=== PATIENT | male | born 1935 | race Caucasian/White ===

== ENCOUNTER 2018-09-14 11:02 | Inpatient (IN) | payer MEDICARE, SELFPAY ==
[2018-09-14] VITALS (15 sets, daily range): BP systolic 129–158; BP diastolic 56–84; PULSE 71–101; RESP 16–27; TEMP 37.4–39.3; O2SAT 90–97; BMI 27.4; BMI 26.9
--- NOTE | 2018-09-14 11:15 | ED.URI ---
HPI - URI/Sore Throat General Chief Complaint: Upper Respiratory Symptoms Stated Complaint: congestion,weak,constant cough Time Seen by Provider: 09/14/18 11:09 Source: patient Mode of arrival: ambulatory Limitations: no limitations History of Present Illness HPI Narrative: Patient is an 83-year-old male presents with cough and shortness of breath. He is noted to have low-grade fever in the ED. He says that this just started last evening. Every time he laid down he was coughing. He now feels chilled. He does cough up some stuff on. He denies shortness of breath or chest pain. He says they recently got back from a 6 week trip to [place]. He does have history of atrial fibrillation for which he takes Pradaxa for. He denies any rash, runny nose, or red eyes. He did any swelling in his legs. MD Complaint: fever and cough Relieving factors: nothing Able to tolerate fluids by mouth: Yes Context: recent travel (to [place]) Associated symptoms: chills Treatments prior to arrival: none Related Data Home Medications Medication Instructions Recorded Confirmed atorvastatin 10 mg PO DAILY 09/14/18 09/14/18 dabigatran etexilate [Pradaxa] 150 mg PO DAILY 09/14/18 09/14/18 losartan 50 mg PO DAILY 09/14/18 09/14/18 metoprolol tartrate 25 mg PO BID 09/14/18 09/14/18 multivitamin 1 tab PO DAILY 09/14/18 09/14/18 Allergies Allergy/AdvReac Type Severity Reaction Status Date / Time No Known Drug Allergies Allergy Verified 09/14/18 11:35 Review of Systems Review of Systems ROS Unobtainable: All systems reviewed & are unremarkable except as noted in HPI and below Constitutional Reports body ache(s), Reports chills and Reports fever(s) Eyes Denies change in vision, Denies eye discharge, Denies irritation and Denies loss of vision ENT Ears, Nose, Mouth, and Throat: Denies change in voice, Denies neck pain and Denies sore throat Cardiovascular Denies chest pain, Denies irregular heart rhythm, Denies lightheadedness, Denies palpitations and Denies orthopnea Respiratory Reports as per HPI Gastrointestinal Gastrointestinal: Denies abdominal pain, Denies change in bowel habits, Denies diarrhea, Denies nausea and Denies vomiting Genitourinary Denies hematuria, Denies flank pain, Denies urinary incontinence and Denies urinary urgency Musculoskeletal Denies neck pain Integumentary/Breasts Denies pruritus, Denies erythema, Denies rash and Denies wounds Neurologic Denies confusion and Denies loss of vision Psychiatric Denies anxiety, Denies confusion, Denies depression, Denies homicidal ideation and Denies suicidal ideation Endocrine Denies palpitations [facility] Medical History Atrial fibrillation (Acute) Hyperlipidemia (Acute) Hypertension (Acute) Social History marital status: Smoking Status: Never smoker alcohol intake: never substance use type: does not use Social History marital status: Smoking Status: Never smoker alcohol intake: never substance use type: does not use Exam Initial Vital Signs Initial Vital Signs: Vital Signs Temperature 100.3 F H 09/14/18 11:18 Pulse Rate 71 09/14/18 11:18 Respiratory Rate 20 09/14/18 11:18 Blood Pressure 151/80 H 09/14/18 11:18 Pulse Oximetry 97 09/14/18 11:18 GENERAL: Alert pleasant elderly male and in no acute distress. HEENT: Head atraumatic,EOMI, pupils reactive, no JVD CARDIOVASCULAR: Regular rate and rhythm without murmurs, rubs or gallops. RESPIRATORY: Breath sounds equal bilaterally, no wheezes rales or rhonchi. ABDOMEN: Soft, nontender. Normoactive bowel sounds all 4 quadrants. No guarding or rebound. EXTREMITIES: Normal range of motion, no clubbing or edema. Neurovascularly intact NEUROLOGICAL: Alert and oriented x4.Normal gait and speech. Cranial nerves II through XII grossly intact. SKIN: Warm, dry, no laceration, no petechiae, no rashes or lesions. Course Orders Ordered: ED Orders 09/14/18 11:16 Consult to Respiratory Therapy Evaluate & Treat XR chest 1V Stat EKG-12 Lead Stat 09/14/18 11:25 B Type Natriuretic Peptide Stat Complete Blood Count AUTO DIFF Stat Comprehensive Metabolic Panel Stat Lactate (Lactic Acid) Stat Magnesium Stat Partial Thromboplastin Time Stat Procalcitonin Stat Prothrombin Time INR Stat Troponin & CK Cardiac Panel Stat 09/14/18 12:20 Blood Culture Stat 09/14/18 12:31 CT angio chest PE protocol Stat 09/14/18 13:12 US abdomen limited Stat 09/14/18 13:25 Urine Microscopic Stat Discontinued Medications Azithromycin 500 mg/ Dextrose 250 mls @ 250 mls/hr IV NOW ONE Stop: 09/14/18 15:33 Last Infusion: 09/14/18 17:29 Dose: 0 mls/hr Admin: 09/14/18 16:32 Dose: 250 mls/hr Ceftriaxone Sodium/Dextrose (Rocephin) 1 gm in 50 mls @ 100 mls/hr IV NOW ONE Stop: 09/14/18 16:01 Last Infusion: 09/14/18 16:20 Dose: 0 mls/hr Admin: 09/14/18 15:51 Dose: 100 mls/hr Vital Signs - 8 hr 09/14/18 11:18 09/14/18 12:05 09/14/18 13:02 Temperature 100.3 F H Pulse Rate 71 81 91 H Respiratory Rate 20 25 H 21 Blood Pressure 151/80 H Blood Pressure [Left Arm] 137/57 L 133/67 Pulse Oximetry 97 90 L 90 L 09/14/18 14:03 09/14/18 14:41 09/14/18 15:45 Temperature Pulse Rate 79 88 87 Respiratory Rate 25 H 24 27 H Blood Pressure Blood Pressure [Left Arm] 139/56 L 141/56 H 158/75 H Pulse Oximetry 90 L 92 09/14/18 16:00 09/14/18 17:00 Temperature Pulse Rate 87 85 Respiratory Rate 27 H 25 H Blood Pressure Blood Pressure [Left Arm] 147/61 H 131/64 Pulse Oximetry 90 L 92 MDM - URI/Sore Throat Lab Data Attestation: I reviewed the patient's lab results. Result diagrams: 09/14/18 11:25 09/14/18 11:25 Lab Results 09/14/18 09/14/18 09/14/18 Range/Units 11:25 11:25 11:25 WBC 9.0 (4.5-11.0) X10^3/uL RBC 3.68 L (4.5-5.9) X10^6/uL Hgb 12.5 L (13.5-17.5) g/dL Hct 36.3 L (41-53) % MCV 98.8 (80-100) fL MCH 34.0 (26-34) PG MCHC 34.4 (30-36) % RDW 15.7 H (11.6-14.8) % Plt Count 106 L (150-400) X10^3/uL Neut % (Auto) 87.0 H (50-75) % Lymph % (Auto) 6.1 L (25-40) % [place] % (Auto) 6.1 (3-14) % Eos % (Auto) 0.4 L (2-4) % Baso % (Auto) 0.4 (0-2) % Neut # (Auto) 7800 H (1027-3609) /uL Lymph # (Auto) 600 L (8611-2194) /uL [place] # (Auto) 600 (0-900) /uL Eos # (Auto) 0 (0-450) /uL Baso # (Auto) 0 (0-100) /uL PT 21.0 H (10.1-12.7) SECONDS INR 1.8 H (0.9-1.3) APTT 72 H (26.4-36.2) SECONDS Sodium 137 (137-145) mmol/L Potassium 4.0 (3.4-5.1) mmol/L Chloride 104 (98-107) mmol/L Carbon Dioxide 20 L (22-32) mmol/L BUN 14 (9-20) mg/dL Creatinine 1.10 (0.66-1.25) mg/dL Estimated GFR > 60.0 (>60) mL/min BUN/Creatinine Ratio 12.7 (6-22) Glucose 220 H (80-110) mg/dL Lactate (0.7-2.1) mmol/L Calcium 9.5 (8.4-10.2) mg/dL Magnesium 1.9 (1.6-2.3) mg/dL Total Bilirubin 3.6 H (0.2-1.3) mg/dL AST 20 (17-59) IU/L ALT 15 L (21-72) IU/L Alkaline Phosphatase 88 (38-126) U/L Total Creatine Kinase 49 L (55-170) U/L CK-MB (CK-2) TNP CK-MB (CK-2) Rel Index TNP Troponin I < 0.012 (0.01-0.034) ng/mL B-Natriuretic Peptide 503 H (<100) Total Protein 10.1 H* (6.3-8.2) g/dL Albumin 4.2 (3.5-5.0) g/dL Globulin 5.9 H (1.7-4.1) g/dL Albumin/Globulin Ratio 0.7 L (1.0-2.8) Procalcitonin (<0.5) ng/mL Urine RBC (0-5/HPF) Urine WBC (0-5/HPF) Ur Squamous Epith Cells (0-5/HPF) Urine Bacteria (None) Ur Culture Indicated? 09/14/18 09/14/18 09/14/18 Range/Units 11:25 11:25 13:25 WBC (4.5-11.0) X10^3/uL RBC (4.5-5.9) X10^6/uL Hgb (13.5-17.5) g/dL Hct (41-53) % MCV (80-100) fL MCH (26-34) PG MCHC (30-36) % RDW (11.6-14.8) % Plt Count (150-400) X10^3/uL Neut % (Auto) (50-75) % Lymph % (Auto) (25-40) % [place] % (Auto) (3-14) % Eos % (Auto) (2-4) % Baso % (Auto) (0-2) % Neut # (Auto) (6281-0839) /uL Lymph # (Auto) (5451-2433) /uL [place] # (Auto) (0-900) /uL Eos # (Auto) (0-450) /uL Baso # (Auto) (0-100) /uL PT (10.1-12.7) SECONDS INR (0.9-1.3) APTT (26.4-36.2) SECONDS Sodium (137-145) mmol/L Potassium (3.4-5.1) mmol/L Chloride (98-107) mmol/L Carbon Dioxide (22-32) mmol/L BUN (9-20) mg/dL Creatinine (0.66-1.25) mg/dL Estimated GFR (>60) mL/min BUN/Creatinine Ratio (6-22) Glucose (80-110) mg/dL Lactate 1.5 (0.7-2.1) mmol/L Calcium (8.4-10.2) mg/dL Magnesium (1.6-2.3) mg/dL Total Bilirubin (0.2-1.3) mg/dL AST (17-59) IU/L ALT (21-72) IU/L Alkaline Phosphatase (38-126) U/L Total Creatine Kinase (55-170) U/L CK-MB (CK-2) CK-MB (CK-2) Rel Index Troponin I (0.01-0.034) ng/mL B-Natriuretic Peptide (<100) Total Protein (6.3-8.2) g/dL Albumin (3.5-5.0) g/dL Globulin (1.7-4.1) g/dL Albumin/Globulin Ratio (1.0-2.8) Procalcitonin < 0.05 (<0.5) ng/mL Urine RBC 5-10/hpf H (0-5/HPF) Urine WBC 0-1/hpf (0-5/HPF) Ur Squamous Epith Cells 0-1 /hpf (0-5/HPF) Urine Bacteria Occasional (0-1) (None) Ur Culture Indicated? Cult not indicated Urine Dip Bedside Urine Glucose Negative Bedside Urine Bilirubin - Negative Bedside Urine Ketone - Negative Urine Specific [place] 1.020 Bedside Urine Occult Blood ++ Bedside Urine pH 6.0 Bedside Urine Protein ++ 100 Bedside Urine Urobilinogen - Negative Bedside Urine Nitrite - Negative Bedside Urine Leukocytes - Negative Esterase Imaging Data Chest x-ray: Radiologist's impression: PROCEDURE: XR CHEST 1V INDICATIONS: cough, shortness of breath TECHNIQUE: One view of the chest was acquired. COMPARISON: None. FINDINGS: Surgical changes and devices: None evident. Lungs and pleura: There may be developing airspace disease within the bilateral lung bases. No lobar consolidation, large effusion, or pneumothorax is evident. Mediastinum: Mediastinal contours appear normal. Heart size is normal. Bones and chest wall: No suspicious bony lesions. Overlying soft tissues appear unremarkable. IMPRESSION: Subtle developing pneumonia versus chronic lung changes within the lung bases. CT scan - chest: Radiologist's impression: PROCEDURE: CT ANGIO CHEST PE PROTOCOL INDICATIONS: hypoxia, recent travel TECHNIQUE: After the administration of intravenous contrast, 2 mm thick sections acquired from the pulmonary apices to the posterior costophrenic angles. 3-dimensional maximum intensity projection (MIP) coronal and sagittal reformats were then acquired through the thorax. For radiation dose reduction, the following was used: automated exposure control, adjustment of mA and/or kV according to patient size. COMPARISON: None. FINDINGS: Image quality: Excellent. Pulmonary arteries: Pulmonary arteries are normal in size, and demonstrate no intraluminal filling defects to suggest central pulmonary embolism. Lungs and pleura: Lungs are clear. No pleural effusions or pneumothorax. Central and peripheral airways are patent. Mediastinum: Heart size is enlarged, without pericardial effusion. There is calcification of the coronary vasculature. No mediastinal or hilar adenopathy. Thoracic aorta is normal in caliber and enhancement. Esophagus is normal in caliber, without hiatal hernia. Bones and chest wall: No suspicious bony lesions. Thoracic spine ankylosis is present. Ribs and thoracic spine appear intact throughout. Thyroid gland demonstrates an incompletely visualized partially calcified mass within the left lobe measuring at least 60 mm diameter. No axillary or supraclavicular adenopathy. Abdomen: Visualized portions of the upper abdomen demonstrate incompletely visualized choleliths. IMPRESSION: 1. No evidence of pulmonary embolus. 2. No acute process. 3. Cardiomegaly. Coronary artery disease. 4. Cholelithiasis. 5. Thoracic spine ankylosis. Dictated by: Arcadio Dunne M.D. on 09/14/2018 at 12:54 US - abdomen: Radiologist's impression: PROCEDURE: US ABDOMEN LIMITED INDICATIONS: RUQ PAIN TECHNIQUE: Real-time focused scanning was performed of the abdomen, with image documentation. COMPARISON: [facility], CT, CT ANGIO CHEST PE PROTOCOL, 09/14/2018, 12:36. FINDINGS: The gallbladder is normal in size and contains at least a single gallstone measuring up to approximately 2.6 cm. Small echogenic foci within the wall of the gallbladder demonstrating reverberation artifact is evident. The wall of the gallbladder measures up to 6 mm in diameter. The patient exhibited a positive sonographic Murry's. The common bile duct was not definitely seen. There is slight increased echogenicity of the liver. However, the entire liver is not imaged. Imaged portions of the pancreas are unremarkable. IMPRESSION: 1. Cholelithiasis. 2. 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 Please correlate clinically to exclude acute cholecystitis. 3. Probable hepatic steatosis. Dictated by: Alphonso Cheung M.D. on 09/14/2018 at 15:13 ECG Data Attestation: I personally reviewed and interpreted this ECG as follows: Prior ECG tracings: not available for review Interpretation: Atrial fibrillation rate [address] changes MDM Narrative Medical decision making narrative: Patient actually does not appear septic he is resting comfortably. However on the monitor it is noted that O2 dropped 88-89%. While sleeping he denies any history of a vacuum IOP. However when he wakes up and talks only goes up to about 91% and he denies any shortness of breath. He is on Pradaxa by just got back from [place] last week. We will scan for PE. Blood work also shows elevated bilirubin 3.6 no right upper quadrant pain, no elevated liver enzymes. Possible early sepsis. CT for PE actually did show cholelithiasis Waited for ultrasound. Patient had ambulation trial, heart rate increased to 150 O2 sat was difficult to read but did show 97% on the portable pulse oximeter however soon as he got back to the monitor his heart rate of 107 and 89%. Ultrasound cholelithiasis slightly thickened gallbladder wall. The patient has no abdominal pain or right upper quadrant pain, this time I do not think this to be relevant. Bigger concerns patient's pneumonia hypoxia and possible early sepsis. Dr. Castrejon agrees with admission. Discharge Plan Departure Patient Disposition: Admitted As Inpatient Clinical Impression: Pneumonia Qualifiers: Pneumonia type: due to unspecified organism Laterality: unspecified laterality Lung location: unspecified part of lung Qualified Code(s): J18.9 - Pneumonia, unspecified organism Admit Date/Time: 09/14/18 16:31 Admit Provider: Rosalie Castrejon
[2018-09-14 11:38] LABS: Add Manual Diff / Slide Review NO; Basophils Absolute Auto 0 /uL (0-100); Basophils Percent Auto 0.4 % (0-2); Eosinophils Absolute Auto 0 /uL (0-450); Eosinophils Percent Auto 0.4 % (2-4); Hematocrit 36.3 % (41-53); Hemoglobin 12.5 g/dL (13.5-17.5); Lymphocytes Absolute Auto 600 /uL (1100-4500); Lymphocytes Percent Auto 6.1 % (25-40); Mean Corpuscular HGB Conc 34.4 % (30-36); Mean Corpuscular Volume 98.8 fL (80-100); Monocytes Absolute Auto 600 /uL (0-900); Monocytes Percent Auto 6.1 % (3-14); Neutrophils Absolute Auto 7800 /uL (1500-7000); Platelet Count 106 X10^3/uL (150-400); Red Blood Cell Count 3.68 X10^6/uL (4.5-5.9); Red Cell Distribution Width 15.7 % (11.6-14.8)
[2018-09-14 11:45] LABS: INR 1.8 (0.9-1.3)
[2018-09-14 11:48] LABS: Lactate (Lactic Acid) 1.5 mmol/L (0.7-2.1); PTT Partial Thromboplastin Tim 72 SECONDS (26.4-36.2)
[2018-09-14 11:51] LABS: Alanine Aminotransferase 15 IU/L (21-72); Albumin 4.2 g/dL (3.5-5.0); Albumin Globulin Ratio 0.7 (1.0-2.8); Alkaline Phosphatase 88 U/L (38-126); Aspartate Aminotransferase 20 IU/L (17-59); BUN Creatinine Ratio 12.7 (6-22); Bilirubin Total 3.6 mg/dL (0.2-1.3); Blood Urea Nitrogen 14 mg/dL (9-20); Calcium 9.5 mg/dL (8.4-10.2); Carbon Dioxide 20 mmol/L (22-32); Chloride 104 mmol/L (98-107); Creatine Kinase 49 U/L (55-170); Estimated Glomerular Filt Rate > 60.0 mL/min (>60); Globulin 5.9 g/dL (1.7-4.1); Glucose 220 mg/dL (80-110); HEMOLYSIS < 15 (0-50); Magnesium 1.9 mg/dL (1.6-2.3); Sodium 137 mmol/L (137-145)
[2018-09-14 11:55] LABS: B Type Natriuretic Peptide 503 (<100)
[2018-09-14 12:00] LABS: Total Protein 10.1 g/dL (6.3-8.2)
[2018-09-14 12:03] LABS: Troponin I < 0.012 ng/mL (0.01-0.034)
[2018-09-14 12:29] LABS: Procalcitonin < 0.05 ng/mL (<0.5)
--- NOTE | 2018-09-14 12:31 | DI.CT.S_ITS ---
PROCEDURE: CT ANGIO CHEST PE PROTOCOL INDICATIONS: hypoxia, recent travel TECHNIQUE: After the administration of intravenous contrast, 2 mm thick sections acquired from the pulmonary apices to the posterior costophrenic angles. 3-dimensional maximum intensity projection (MIP) coronal and sagittal reformats were then acquired through the thorax. For radiation dose reduction, the following was used: automated exposure control, adjustment of mA and/or kV according to patient size. COMPARISON: None. FINDINGS: Image quality: Excellent. Pulmonary arteries: Pulmonary arteries are normal in size, and demonstrate no intraluminal filling defects to suggest central pulmonary embolism. Lungs and pleura: Lungs are clear. No pleural effusions or pneumothorax. Central and peripheral airways are patent. Mediastinum: Heart size is enlarged, without pericardial effusion. There is calcification of the coronary vasculature. No mediastinal or hilar adenopathy. Thoracic aorta is normal in caliber and enhancement. Esophagus is normal in caliber, without hiatal hernia. Bones and chest wall: No suspicious bony lesions. Thoracic spine ankylosis is present. Ribs and thoracic spine appear intact throughout. Thyroid gland demonstrates an incompletely visualized partially calcified mass within the left lobe measuring at least 60 mm diameter. No axillary or supraclavicular adenopathy. Abdomen: Visualized portions of the upper abdomen demonstrate incompletely visualized choleliths. IMPRESSION: 1. No evidence of pulmonary embolus. 2. No acute process. 3. Cardiomegaly. Coronary artery disease. 4. Cholelithiasis. 5. Thoracic spine ankylosis. Dictated by: Arcadio Dunne M.D. on 09/14/2018 at 12:54 Approved by: Arcadio Dunne M.D. on 09/14/2018 at 13:03
--- NOTE | 2018-09-14 13:12 | DI.US.S_ITS ---
PROCEDURE: US ABDOMEN LIMITED INDICATIONS: RUQ PAIN TECHNIQUE: Real-time focused scanning was performed of the abdomen, with image documentation. COMPARISON: [facility], CT, CT ANGIO CHEST PE PROTOCOL, 09/14/2018, 12:36. FINDINGS: The gallbladder is normal in size and contains at least a single gallstone measuring up to approximately 2.6 cm. Small echogenic foci within the wall of the gallbladder demonstrating reverberation artifact is evident. The wall of the gallbladder measures up to 6 mm in diameter. The patient exhibited a positive sonographic Murry's. The common bile duct was not definitely seen. There is slight increased echogenicity of the liver. However, the entire liver is not imaged. Imaged portions of the pancreas are unremarkable. IMPRESSION: 1. Cholelithiasis. 2. 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 Please correlate clinically to exclude acute cholecystitis. 3. Probable hepatic steatosis. Dictated by: Alphonso Cheung M.D. on 09/14/2018 at 15:13 Approved by: Alphonso Cheung M.D. on 09/14/2018 at 15:15
--- NOTE | 2018-09-14 13:35 | PC.NURSE ---
Placed on O2 for sats of 88%
[2018-09-14 14:01] LABS: RBC Urine 5-10/HPF (0-5/HPF); Squamous Epithelial Cell Urine 0-1 /HPF (0-5/HPF); WBC Urine 0-1/HPF (0-5/HPF)
[2018-09-14 14:02] LABS: Bacteria Urine Occasional (0-1); Culture Indicated Urine Cult Not Indicated
[2018-09-14] MEDS: CEFTRIAXONE 1 GM/50 ML FROZ.PIGGY IV (15:51)
[2018-09-14] MEDS: AZITHROMYCIN 500 MG in DEXTROSE 5% IN WATER 250 ML IV (16:32)
--- NOTE | 2018-09-14 18:29 | PM.HP.1 ---
History of Present Illness Date Patient Seen: 09/14/18 Chief complaint: congestion,weak,constant cough Narrative: The patient is an 83-year-old male with a history of atrial fibrillation on Pradaxa, hypertension, hyperlipidemia who was in his usual state of health until a few days ago. Patient was on a 6 week trip to [place] where he was in [place] and [place]. He reports last night he developed a cough which is nonproductive. He has had fever, shortness of breath, and wheezing. He reports no hemoptysis. He does not have a productive cough. He denies any chest pain. He has chronic atrial fibrillation. The patient was weak cough and short of breath. He was seen in the emergency department. Initially his fever was noted to be 103. He had a chest x-ray which suggested a pneumonia. They were planning to discharge him home however the patient was noted to be hypoxic on room air. His saturation dipped to 84-88%. A CT angio of the chest was obtained to rule out PE. There was no evidence of PE on the CT. In addition the patient was found to have an elevated bilirubin. He had an abdominal ultrasound which was unremarkable. The patient was admitted to the hospital for inpatient treatment of pneumonia. He reports no headache blurred vision or double vision. He has no nausea vomiting or diarrhea. He denies any swelling in his ankles. He has no joint pains. No dysuria hematuria or pyuria. Further review of systems is negative. Patient History Medical History (Updated 09/14/18 @ 18:37 by Rosalie Castrejon MD) Atrial fibrillation (Acute) Hyperlipidemia (Acute) Hypertension (Acute) Surgical History (Updated 09/14/18 @ 18:33 by Rosalie Castrejon MD) Hip joint replacement status (Acute) Family History (Updated 09/14/18 @ 18:33 by Rosalie Castrejon MD) Brother Atrial fibrillation Social History marital status: Smoking Status: Never smoker alcohol intake: never substance use type: does not use Family & Social History Family History (Updated 09/14/18 @ 18:33 by Rosalie Castrejon MD) Brother Atrial fibrillation Safety & Behavioral: Feels Safe in Current Yes Environment Been Physically Hurt or No Threatened By a Person Tobacco & Substance use: Smoking Status Never smoker alcohol intake never alcohol intake frequency a few times a month Substance Use Type does not use Meds Home Medications Medication Instructions Recorded Confirmed Type atorvastatin 10 mg PO DAILY 09/14/18 09/14/18 History dabigatran etexilate [Pradaxa] 150 mg PO DAILY 09/14/18 09/14/18 History losartan 50 mg PO DAILY 09/14/18 09/14/18 History metoprolol tartrate 25 mg PO BID 09/14/18 09/14/18 History multivitamin 1 tab PO DAILY 09/14/18 09/14/18 History Allergies Allergy/AdvReac Type Severity Reaction Status Date / Time No Known Drug Allergies Allergy Verified 09/14/18 11:35 Review of Systems Review of Systems All systems reviewed & are unremarkable except as noted in HPI and below Exam Vital Signs (past 8 hours): - 09/14/18 11:18 09/14/18 12:05 09/14/18 13:02 Temperature 100.3 F H Pulse Rate 71 81 91 H Respiratory Rate 20 25 H 21 Blood Pressure 151/80 H Blood Pressure [Left Arm] 137/57 L 133/67 Pulse Oximetry 97 90 L 90 L 09/14/18 14:03 09/14/18 14:41 09/14/18 15:45 Temperature Pulse Rate 79 88 87 Respiratory Rate 25 H 24 27 H Blood Pressure Blood Pressure [Left Arm] 139/56 L 141/56 H 158/75 H Pulse Oximetry 90 L 92 09/14/18 16:00 09/14/18 17:00 09/14/18 17:44 Temperature Pulse Rate 87 85 82 Respiratory Rate 27 H 25 H 21 Blood Pressure 129/57 L Blood Pressure [Left Arm] 147/61 H 131/64 Pulse Oximetry 90 L 92 94 Oxygen Delivery Method Nasal Cannula Oxygen Flow Rate 2 Narrative Exam Narrative: Pleasant elderly male who is ill-appearing HEENT: Normocephalic atraumatic, extraocular muscles are intact oropharynx is clear neck is supple, Lungs: Decreased breath sounds, bibasilar rhonchi noted, end-expiratory wheezing as well Cardiac exam: Irregularly irregular, normal S1-S2 Abdomen: Soft nontender nondistended, no hepatosplenomegaly Extremities: No edema Neuro exam: Nonfocal Psychiatric exam: Patient is awake alert appropriate answers questions accordingly Objective Labs Result Diagrams: 09/14/18 11:25 09/14/18 11:25 Labs: Laboratory Results - last 24 hr 09/14/18 09/14/18 09/14/18 11:25 11:25 11:25 WBC 9.0 RBC 3.68 L Hgb 12.5 L Hct 36.3 L MCV 98.8 MCH 34.0 MCHC 34.4 RDW 15.7 H Plt Count 106 L Neut % (Auto) 87.0 H Lymph % (Auto) 6.1 L [place] % (Auto) 6.1 Eos % (Auto) 0.4 L Baso % (Auto) 0.4 Neut # (Auto) 7800 H Lymph # (Auto) 600 L [place] # (Auto) 600 Eos # (Auto) 0 Baso # (Auto) 0 PT 21.0 H INR 1.8 H APTT 72 H Sodium 137 Potassium 4.0 Chloride 104 Carbon Dioxide 20 L BUN 14 Creatinine 1.10 Estimated GFR > 60.0 BUN/Creatinine Ratio 12.7 Glucose 220 H Lactate Calcium 9.5 Magnesium 1.9 Total Bilirubin 3.6 H AST 20 ALT 15 L Alkaline Phosphatase 88 Total Creatine Kinase 49 L CK-MB (CK-2) TNP CK-MB (CK-2) Rel Index TNP Troponin I < 0.012 B-Natriuretic Peptide 503 H Total Protein 10.1 H* Albumin 4.2 Globulin 5.9 H Albumin/Globulin Ratio 0.7 L Procalcitonin Urine RBC Urine WBC Ur Squamous Epith Cells Urine Bacteria Ur Culture Indicated? 09/14/18 09/14/18 09/14/18 11:25 11:25 13:25 WBC RBC Hgb Hct MCV MCH MCHC RDW Plt Count Neut % (Auto) Lymph % (Auto) [place] % (Auto) Eos % (Auto) Baso % (Auto) Neut # (Auto) Lymph # (Auto) [place] # (Auto) Eos # (Auto) Baso # (Auto) PT INR APTT Sodium Potassium Chloride Carbon Dioxide BUN Creatinine Estimated GFR BUN/Creatinine Ratio Glucose Lactate 1.5 Calcium Magnesium Total Bilirubin AST ALT Alkaline Phosphatase Total Creatine Kinase CK-MB (CK-2) CK-MB (CK-2) Rel Index Troponin I B-Natriuretic Peptide Total Protein Albumin Globulin Albumin/Globulin Ratio Procalcitonin < 0.05 Urine RBC 5-10/hpf H Urine WBC 0-1/hpf Ur Squamous Epith Cells 0-1 /hpf Urine Bacteria Occasional (0-1) Ur Culture Indicated? Cult not indicated Assessment & Plan (1) Pneumonia: Problem details: Patient admitted to the hospital with presumed pneumonia, present on admission. He has had a pneumonia shot. His procalcitonin is less than 5. Will check respiratory virus panel and influenza panel. Will continue him on ceftriaxone and azithromycin in the interim. Qualifiers: Aspiration pneumonia type: Laterality: unspecified laterality Lung location: unspecified part of lung Pneumonia type: due to unspecified organism Qualified Code(s): J18.9 - Pneumonia, unspecified organism Current visit: Yes Status: Acute (2) Acute respiratory failure with hypoxia: Problem details: Will continue oxygen, will add albuterol nebulized given his wheezing. Present on admission Current visit: Yes Status: Acute (3) Hypertension: Problem details: Chronic, continue home medication Current visit: Yes Status: Acute (4) Atrial fibrillation: Problem details: Chronic, continue home medications in addition to his usual Pradaxa Current visit: Yes Status: Acute (5) Hyperlipidemia: Problem details: Continue statin, chronic Current visit: Yes Status: Acute Assessment & Plan narrative: Patient noted to have an elevated bilirubin. Will continue to monitor this closely.
[2018-09-14] MEDS: SODIUM CHLORIDE 0.45% 1,000 ML 100 ML IV (18:33)
[2018-09-14] MEDS: DABIGATRAN 75 MG CAPSULE 150 MG PO (18:34)
[2018-09-14] MEDS: ACETAMINOPHEN 325 MG TABLET 650 MG PO (18:52)
[2018-09-14] MEDS: SODIUM CHLORIDE 0.9% 1,000 ML 84 ML IV (19:33)
--- NOTE | 2018-09-14 19:39 | PC.NURSE ---
admit note: pt arrived at 1815, ambulated to the bed from stretcher, but weak. 90-91% RA while awake, desats to mid 80's while sleeping per ED nurse. pt now 2L 92% at sleep. denied chest pain or n/v. febrile 102.7, administered tylenol. cms+. oriented pt to the room. call light in reach. bed alarm active.
[2018-09-14] MEDS: ATORVASTATIN 10 MG TABLET PO (21:03)
[2018-09-14] MEDS: DOCUSATE 100 MG CAPSULE PO (21:06)
[2018-09-14] MEDS: METOPROLOL IR 25 MG TABLET PO (21:06)
[2018-09-14 21:14] LABS: Adenovirus Not Detected (Not Detect); Bordetella pertussis Not Detected (Not Detect); Chlamydophila pneumoniae Not Detected (Not Detect); Coronavirus 229E Not Detected (Not Detect); Coronavirus HKU1 Not Detected (Not Detect); Coronavirus NL 63 Not Detected (Not Detect); Coronavirus OC43 Not Detected (Not Detect); Human Metapneumovirus Not Detected (Not Detect); Human Rhinovirus/Enterovirus Detected (Not Detect); Influenza A Not Detected (Not Detect); Influenza B Not Detected (Not Detect); Mycoplasma pneumoniae Not Detected (Not Detect); Parainfluenza Virus 1 Not Detected (Not Detect); Parainfluenza Virus 2 Not Detected (Not Detect); Parainfluenza Virus 3 Not Detected (Not Detect); Parainfluenza Virus 4 Not Detected (Not Detect); Respiratory Syncytial Virus Not Detected (Not Detect)
[2018-09-15] VITALS (26 sets, daily range): BP systolic 120–139; BP diastolic 61–75; PULSE 73–110; RESP 16–24; TEMP 36.7–39.3; O2SAT 91–97
--- NOTE | 2018-09-15 | DI.MRI.S_ITS ---
PROCEDURE: MR ABDOMEN WO CON INDICATIONS: Hyperbilirubinemia TECHNIQUE: Coronal HASTE through the abdomen, axial 2-D FLASH in- and [id number], and breath-hold T2 FSE with fat saturation through the biliary system and pancreas. Oblique coronal and axial thin-slice HASTE, radial thick-slab HASTE centered on the extrahepatic bile ducts. Intravenous secretin: Not requested. COMPARISON: None. FINDINGS: Image quality: Excellent. Pancreas and biliary system: Intra- and extra-hepatic biliary ducts are non dilated. Pancreas is normal in morphology, without adjacent soft tissue edema. Pancreatic duct is normal in caliber, without developmental anomalies. Inflammatory changes and fluid noted adjacent to the tail of pancreas suspicious for pancreatitis. Gallbladder contains a 2.1 cm in diameter stone. Gallbladder wall thickening. Trace pericholecystic fluid is noted. Other solid organs: Liver is normal in size. Spleen is normal in size. No adrenal nodules. Both kidneys are normal in size, without hydronephrosis. Nodes and vessels: No retroperitoneal or mesenteric adenopathy by size criteria. Aorta and inferior vena cava are normal in size. Bowel and peritoneum: Unenhanced bowel loops are normal in caliber. No free fluid. Lung bases: No basal pleural effusions. Heart size is normal. Bones and soft tissues: No ventral hernias. Bone marrow is of normal overall signal. IMPRESSION: 1. Cholelithiasis with gallbladder wall thickening and pericholecystic fluid consistent with cholecystitis. 2. Mild inflammatory changes and small amount of free fluid adjacent to the tail of the pancreas suspicious for pancreatitis. Please correlate with laboratory data. 3. No biliary or pancreatic ductal dilatation. No choledocholithiasis. Dictated by: Consuelo Austin MD, PhD on 09/15/2018 at 18:44 Approved by: Consuelo Austin MD, PhD on 09/15/2018 at 18:47
--- NOTE | 2018-09-15 | DI.ECHO.S_ITS ---
[facility]---------+ [facility] +---------+ : : [address] : : : : [address] : : : : Phone: [phone] Echocardiogram Report + + :Name: MEEK COREY Study Date: 09/16/2018 Height: 68 in : :[facility] Exam Location: [facility] Weight: 177 lb : : Gender: Male BSA: 1.9 m2 : :: 1935 Age: 83 yrs BP: 142/71 mmHg: :Reason For Study: Pulmonary Edema : :Ordering Physician: Gladys : :Hospitalist Performed By: Solange Chawla : :Referring: Sharon MORALES E : + + Interpretation Summary The left ventricle is borderline dilated. Left ventricular systolic function is low normal. The ejection fraction is estimated to be 50-55%. Left ventricular wall motion is normal. Diastolic function cannot be fully assessed due to a-fib, findings suggest increased LV filling pressures or grade II diastolic dysfunction. Clinical correlation is recommended to diagnosis diastolic CHF. The right ventricle is borderline dilated. The right ventricular systolic function is normal. The right ventricular systolic pressure is estimated to be at least 53 mmHg based on an estimated right atrial pressure of 15 mm Hg. The left atrium is moderately dilated. The right atrium is severely dilated. There is mild mitral regurgitation. There is no other significant valvular heart disease. Procedure: A two-dimensional transthoracic echocardiogram with color flow and Doppler was performed. The study quality was technically adequate. There is no prior echocardiogram noted for this patient. The patient was in atrial fibrillation with heart rates between 76-94 bpm during the exam. Left Ventricle: The left ventricle is borderline dilated. There is normal left ventricular wall thickness. Left ventricular systolic function is low normal. The ejection fraction is estimated to be 50-55%. Left ventricular wall motion is normal. Right Ventricle: The right ventricle is borderline dilated. The right ventricular systolic function is normal. Atria: The left atrium is moderately dilated. The right atrium is severely dilated. The interatrial septum is intact with no evidence for an atrial septal defect. Mitral Valve: The mitral valve is normal in structure and function. There is mild mitral regurgitation. Aortic Valve: The aortic valve is trileaflet. The aortic valve opens well. There is trace aortic regurgitation. Tricuspid Valve: The tricuspid valve is normal in structure and function. There is mild tricuspid regurgitation. The right ventricular systolic pressure is estimated to be at least 53 mmHg based on an estimated right atrial pressure of 15 mm Hg. Pulmonic Valve: The pulmonic valve is not well visualized. There is a trace or physiologic amount of pulmonic regurgitation. There is no other significant valvular heart disease. Great Vessels: The aortic root is not well visualized but is probably normal size. The ascending aorta is moderately enlarged. The IVC is dilated (diameter is greater than 2.1 cm) and it collapses less than 50% with a sniff. This suggests a high right atrial pressure of 15 mm Hg. Pericardium/ Pleura There is no pericardial effusion. There is no pleural effusion. MMode/2D Measurements & Calculations LVIDd: 5.9 cm LVOT diam: 2.4 cm LVIDs: 3.6 cm Ao root diam: 3.6 cm FS: 39.6 % asc Aorta Diam: 4.3 cm IVSd: 0.94 cm LVPWd: 1.0 cm LV jimenez. diameter/BSA (cm/m^2): 3.1 LV sys. diameter/BSA (cm/m^2): 1.8 LA A2 area: 28.0 cm2 RA long axis: 6.0 cm LA A4 area: 23.6 cm2 RA area: 27.8 cm2 LA length (vol): 6.6 cm RA vol: 109.4 ml LA vol: 85.6 ml RA : 56.4 ml/m2 LA vol index: 44.1 ml/m2 IVC diam: 2.8 cm TAPSE: 1.9 cm Doppler Measurements & Calculations Ao V2 max: 123.5 cm/sec LVOT Max Jeff: 95.8 cm/sec Ao V2 mean: 90.0 cm/sec LV V1 max P.7 mmHg Ao max P.1 mmHg LV V1 VTI: 15.5 cm Ao mean P.5 mmHg EFRAIN(I,D): 3.6 cm2 Ao V2 VTI: 19.0 cm EFRAIN(V,D): 3.4 cm2 sev ratio: 0.82 EFRAIN indexed to BSA (cm^2/m^2): 1.9 TR max jeff: 307.2 cm/sec SV(LVOT): 68.5 ml TR max P.7 mmHg Reading Physician:03:17 PM
[2018-09-15] MEDS: ALBUTEROL 2.5 MG/3 ML NEB (ADULT) INH ×4 (00:38→19:24)
[2018-09-15] MEDS: ACETAMINOPHEN 325 MG TABLET 650 MG PO ×3 (01:06→18:31)
--- NOTE | 2018-09-15 01:42 | PC.NURSE ---
Pt desatting to low 80's on 4L NC, bumped up to 5L and simple mask and able to stay at 92%. Also requested breathing treatment which was helpful. Pt coughs everytime he breathes in through his nose or tries to take a deep breath. He is congested and has a difficult time coughing. He has been quiet and sleeping an hour p the breathing tx. Pt also had a temp of 102.1 at the beginning of the shift; given 650 APAP and ice packs under arms and is now at 100.7. Tachy at times and SOB with exertion.
[2018-09-15 05:46] LABS: Add Manual Diff / Slide Review NO; Basophils Absolute Auto 0 /uL (0-100); Basophils Percent Auto 0.2 % (0-2); Eosinophils Absolute Auto 0 /uL (0-450); Eosinophils Percent Auto 0.2 % (2-4); Hemoglobin 11.3 g/dL (13.5-17.5); Lymphocytes Absolute Auto 500 /uL (1100-4500); Lymphocytes Percent Auto 6.7 % (25-40); Mean Corpuscular HGB Conc 35.2 % (30-36); Mean Corpuscular Hemoglobin 34.6 PG (26-34); Mean Corpuscular Volume 98.2 fL (80-100); Monocytes Absolute Auto 500 /uL (0-900); Monocytes Percent Auto 6.2 % (3-14); Neutrophils Absolute Auto 6400 /uL (1500-7000); Neutrophils Percent Auto 86.7 % (50-75); Platelet Count 85 X10^3/uL (150-400); Red Blood Cell Count 3.26 X10^6/uL (4.5-5.9); Red Cell Distribution Width 15.8 % (11.6-14.8); White Blood Cell Count 7.4 X10^3/uL (4.5-11.0)
[2018-09-15 05:54] LABS: BUN Creatinine Ratio 13.3 (6-22); Blood Urea Nitrogen 16 mg/dL (9-20); Calcium 9.4 mg/dL (8.4-10.2); Carbon Dioxide 20 mmol/L (22-32); Chloride 105 mmol/L (98-107); Glucose 168 mg/dL (80-110); HEMOLYSIS < 15 (0-50); Potassium 3.7 mmol/L (3.4-5.1); Sodium 134 mmol/L (137-145)
--- NOTE | 2018-09-15 07:00 | DI.RAD.S_ITS ---
PROCEDURE: XR CHEST 2V INDICATIONS: r/o pneumonia TECHNIQUE: 2 views of the chest were acquired. COMPARISON: [facility], CR, XR CHEST 1V, 09/14/2018, 11:20. FINDINGS: Surgical changes and devices: None. Lungs and pleura: There is blunting of bilateral costophrenic angles posteriorly suggestive of trace bilateral pleural effusion and bibasilar atelectasis. No definite focal infiltrate. Pulmonary vascular congestion is seen. No gross pneumothorax. Mediastinum: Mediastinal contours are normal. Heart size is enlarged. Bones and chest wall: No suspicious bony abnormalities. Soft tissues appear unremarkable. IMPRESSION: Congestive changes and small bilateral posterior pleural effusion with bibasilar dependent atelectasis. No definite focal infiltrate or gross pneumothorax. Dictated by: Nicho Ghosh M.D. on 09/15/2018 at 11:47 Approved by: Nicho Ghosh M.D. on 09/15/2018 at 11:51
[2018-09-15] MEDS: SODIUM CHLORIDE 0.9% 1,000 ML 84 ML IV ×2 (07:54→21:43)
[2018-09-15] MEDS: DOCUSATE 100 MG CAPSULE PO ×2 (09:30→20:44)
[2018-09-15] MEDS: LOSARTAN 50 MG TABLET PO (09:30)
[2018-09-15] MEDS: METOPROLOL IR 25 MG TABLET PO ×2 (09:30→20:44)
--- NOTE | 2018-09-15 10:12 | PM.PN.1 ---
Subjective Date Patient Seen: 09/15/18 Time Patient Seen: 10:12 Interval history: He is seen today in his room to follow-up the hypoxia and apparent viral pneumonia. The white count is 7.4. The bilirubin has dropped from 3.6, down to 3.0. The BNP was 503. He was 94% on 5 L. The respiratory viral panel is positive for enterovirus/rhinovirus. His troponin was normal but the chest x-rays and CTA chest when I review them look more like congestive heart failure or pulmonary fibrosis and so an echocardiogram will be needed. Exam Vital Signs (past 8 hours): - 09/15/18 02:36 09/15/18 03:32 09/15/18 03:54 Temperature 101.4 F H 100.4 F H 100.4 F H Pulse Rate Respiratory Rate Blood Pressure Pulse Oximetry 09/15/18 05:13 09/15/18 07:00 09/15/18 08:00 Temperature 100.1 F H 98.0 F Pulse Rate 77 73 Respiratory Rate 16 18 Blood Pressure 120/65 139/61 Pulse Oximetry 97 96 96 09/15/18 08:47 Temperature Pulse Rate 76 Respiratory Rate 18 Blood Pressure Pulse Oximetry 94 Oxygen Delivery Method Nasal Cannula Oxygen Flow Rate 5 Narrative Exam Narrative: He is alert and oriented x3. He looks quite weak and ill. Heart is irregularly irregular without murmur. Lungs have wheezing bilaterally. Extremities have no ankle edema. Objective Labs Result Diagrams: 09/15/18 05:00 09/15/18 05:00 Labs: Laboratory Results - last 24 hr 09/14/18 09/14/18 09/14/18 11:25 11:25 11:25 WBC 9.0 RBC 3.68 L Hgb 12.5 L Hct 36.3 L MCV 98.8 MCH 34.0 MCHC 34.4 RDW 15.7 H Plt Count 106 L Neut % (Auto) 87.0 H Lymph % (Auto) 6.1 L [place] % (Auto) 6.1 Eos % (Auto) 0.4 L Baso % (Auto) 0.4 Neut # (Auto) 7800 H Lymph # (Auto) 600 L [place] # (Auto) 600 Eos # (Auto) 0 Baso # (Auto) 0 PT 21.0 H INR 1.8 H APTT 72 H Sodium 137 Potassium 4.0 Chloride 104 Carbon Dioxide 20 L BUN 14 Creatinine 1.10 Estimated GFR > 60.0 BUN/Creatinine Ratio 12.7 Glucose 220 H Lactate Calcium 9.5 Magnesium 1.9 Total Bilirubin 3.6 H AST 20 ALT 15 L Alkaline Phosphatase 88 Total Creatine Kinase 49 L CK-MB (CK-2) TNP CK-MB (CK-2) Rel Index TNP Troponin I < 0.012 B-Natriuretic Peptide 503 H Total Protein 10.1 H* Albumin 4.2 Globulin 5.9 H Albumin/Globulin Ratio 0.7 L Procalcitonin Urine RBC Urine WBC Ur Squamous Epith Cells Urine Bacteria Ur Culture Indicated? Chlamy pneumoniae PCR Adenovirus (PCR) B.parapertussis DNA PCR Coronavirus OC43 (PCR) Coronavirus HKU1 (PCR) Coronavirus 229E (PCR) Coronavirus NL63 (PCR) Human Metapneumovir PCR Influenza Type A (PCR) Influenza Type B (PCR) M. pneumoniae (PCR) Parainfluenza 1 (PCR) Parainfluenza 2 (PCR) Parainfluenza 3 (PCR) Parainfluenza 4 (PCR) RSV (PCR) Entero/Rhino (PCR) 09/14/18 09/14/18 09/14/18 11:25 11:25 13:25 WBC RBC Hgb Hct MCV MCH MCHC RDW Plt Count Neut % (Auto) Lymph % (Auto) [place] % (Auto) Eos % (Auto) Baso % (Auto) Neut # (Auto) Lymph # (Auto) [place] # (Auto) Eos # (Auto) Baso # (Auto) PT INR APTT Sodium Potassium Chloride Carbon Dioxide BUN Creatinine Estimated GFR BUN/Creatinine Ratio Glucose Lactate 1.5 Calcium Magnesium Total Bilirubin AST ALT Alkaline Phosphatase Total Creatine Kinase CK-MB (CK-2) CK-MB (CK-2) Rel Index Troponin I B-Natriuretic Peptide Total Protein Albumin Globulin Albumin/Globulin Ratio Procalcitonin < 0.05 Urine RBC 5-10/hpf H Urine WBC 0-1/hpf Ur Squamous Epith Cells 0-1 /hpf Urine Bacteria Occasional (0-1) Ur Culture Indicated? Cult not indicated Chlamy pneumoniae PCR Adenovirus (PCR) B.parapertussis DNA PCR Coronavirus OC43 (PCR) Coronavirus HKU1 (PCR) Coronavirus 229E (PCR) Coronavirus NL63 (PCR) Human Metapneumovir PCR Influenza Type A (PCR) Influenza Type B (PCR) M. pneumoniae (PCR) Parainfluenza 1 (PCR) Parainfluenza 2 (PCR) Parainfluenza 3 (PCR) Parainfluenza 4 (PCR) RSV (PCR) Entero/Rhino (PCR) 09/14/18 09/15/18 09/15/18 19:36 05:00 05:00 WBC 7.4 RBC 3.26 L Hgb 11.3 L Hct 32.0 L MCV 98.2 MCH 34.6 H MCHC 35.2 RDW 15.8 H Plt Count 85 L Neut % (Auto) 86.7 H Lymph % (Auto) 6.7 L [place] % (Auto) 6.2 Eos % (Auto) 0.2 L Baso % (Auto) 0.2 Neut # (Auto) 6400 Lymph # (Auto) 500 L [place] # (Auto) 500 Eos # (Auto) 0 Baso # (Auto) 0 PT INR APTT Sodium 134 L Potassium 3.7 Chloride 105 Carbon Dioxide 20 L BUN 16 Creatinine 1.20 Estimated GFR 58.0 L BUN/Creatinine Ratio 13.3 Glucose 168 H Lactate Calcium 9.4 Magnesium Total Bilirubin AST ALT Alkaline Phosphatase Total Creatine Kinase CK-MB (CK-2) CK-MB (CK-2) Rel Index Troponin I B-Natriuretic Peptide Total Protein Albumin Globulin Albumin/Globulin Ratio Procalcitonin Urine RBC Urine WBC Ur Squamous Epith Cells Urine Bacteria Ur Culture Indicated? Chlamy pneumoniae PCR Not detected Adenovirus (PCR) Not detected B.parapertussis DNA PCR Not detected Coronavirus OC43 (PCR) Not detected Coronavirus HKU1 (PCR) Not detected Coronavirus 229E (PCR) Not detected Coronavirus NL63 (PCR) Not detected Human Metapneumovir PCR Not detected Influenza Type A (PCR) Not detected Influenza Type B (PCR) Not detected M. pneumoniae (PCR) Not detected Parainfluenza 1 (PCR) Not detected Parainfluenza 2 (PCR) Not detected Parainfluenza 3 (PCR) Not detected Parainfluenza 4 (PCR) Not detected RSV (PCR) Not detected Entero/Rhino (PCR) Detected H 09/15/18 05:00 WBC RBC Hgb Hct MCV MCH MCHC RDW Plt Count Neut % (Auto) Lymph % (Auto) [place] % (Auto) Eos % (Auto) Baso % (Auto) Neut # (Auto) Lymph # (Auto) [place] # (Auto) Eos # (Auto) Baso # (Auto) PT INR APTT Sodium Potassium Chloride Carbon Dioxide BUN Creatinine Estimated GFR BUN/Creatinine Ratio Glucose Lactate Calcium Magnesium Total Bilirubin 3.0 H AST ALT Alkaline Phosphatase Total Creatine Kinase CK-MB (CK-2) CK-MB (CK-2) Rel Index Troponin I B-Natriuretic Peptide Total Protein Albumin Globulin Albumin/Globulin Ratio Procalcitonin Urine RBC Urine WBC Ur Squamous Epith Cells Urine Bacteria Ur Culture Indicated? Chlamy pneumoniae PCR Adenovirus (PCR) B.parapertussis DNA PCR Coronavirus OC43 (PCR) Coronavirus HKU1 (PCR) Coronavirus 229E (PCR) Coronavirus NL63 (PCR) Human Metapneumovir PCR Influenza Type A (PCR) Influenza Type B (PCR) M. pneumoniae (PCR) Parainfluenza 1 (PCR) Parainfluenza 2 (PCR) Parainfluenza 3 (PCR) Parainfluenza 4 (PCR) RSV (PCR) Entero/Rhino (PCR) Assessment & Plan (1) Pneumonia: Problem details: Patient was admitted to the hospital with presumed pneumonia, present on admission. He has had a pneumonia shot. His respiratory viral panel is positive for Rhinovirus. Stopping bacterial antibiotic coverage today. Recheck CBC tomorrow. Qualifiers: Aspiration pneumonia type: Laterality: unspecified laterality Lung location: unspecified part of lung Pneumonia type: due to unspecified organism Qualified Code(s): J18.9 - Pneumonia, unspecified organism Current visit: Yes Status: Acute (2) Acute respiratory failure with hypoxia: Problem details: Will continue oxygen, will add albuterol nebulized given his wheezing. Present on admission Consider adding steroids. The elevated BNP and the chest x-ray/CT angiogram of the chest appearance suggests a cardiac component and so an echocardiogram will be ordered. Current visit: Yes Status: Acute (3) Hypertension: Problem details: Chronic, continue home medication Current visit: Yes Status: Acute (4) Atrial fibrillation: Problem details: Chronic, continue home medications including metoprolol and Pradaxa Current visit: Yes Status: Acute (5) Hyperlipidemia: Problem details: Continue statin, chronic Current visit: Yes Status: Acute (6) Hyperbilirubinemia: Problem details: Etiology uncertain. Bilirubin has dropped to 3.0 and will be rechecked tomorrow. US liver imaging shows cholelithiasis, gallbladder wall thickening and probable adenomyomatosis. Consider surgical consult. No abdominal pain complaint. Recheck CBC tomorrow. Current visit: Yes Status: Acute
--- NOTE | 2018-09-15 13:35 | PC.NURSE ---
Pt is A&Ox3. Lung sounds with wheezes and crackles throughout. Pt has a nonproductive cough. Heart rate up to 130s previously, aware but has not written any new orders. Up to chair and pt just laid back down. He is a one person assist and had a bm and unmeasured void. He can also be incontinent of urine sometimes. Eating well at meals.
--- NOTE | 2018-09-15 14:29 | CM.DANOTE ---
Addendum entered by Sally Pelaez LPN 09/15/18 14:37: Pt identifies Jovanny Storm as his Life Partner. Original Note: Discharge Planning/Care Management DCP: assessment: case received and discussed this morning in Team Rounds. Pt is an 83 year old male who admitted yesterday late afternoon to care of hospitalilst team. PCP: Dr. Lise Leal Payer: Medicare and [employer]. Pt with recent travel for 6 weeks in [place] and [place] and with signs of illness upon his return. Full dx and POC are in process. DROPLET PRECAUTIONS: noted. Rsp viral panel: + Entero Rhino PCR HR today to 130's per RN notes. P: discuss with Dr. Mustafa again tomorrow in rounds and then check in with pt or his contact: Jovanny Storm [phone] for followup on d/c issues and options. CM Discharge Assessment Start: 09/15/18 14:28 Freq: Status: Active Protocol: Document 09/15/18 14:29 ITV (Rec: 09/15/18 14:29 ITV [id number]) Discharge Planning Assessment Advance Directives? No History Provided By Medical Record Prior Living Arrangements House Household Members spouse Review Status In Process Next Review Type Continued Stay Review
[2018-09-15 15:51] LABS: B Type Natriuretic Peptide 453 (<100)
[2018-09-15] MEDS: guaiFENesin Solution 100 MG/5 ML UDC PO (17:04)
[2018-09-15] MEDS: DABIGATRAN 75 MG CAPSULE 150 MG PO (17:23)
--- NOTE | 2018-09-15 19:30 | P.CONS_ITS ---
History of Present Illness Date Patient Seen: 09/15/18 Time Patient Seen: 19:25 Chief complaint: congestion,weak,constant cough Reason for consult: Gallstone and jaundice Requesting provider: Sharon Mustafa Narrative: Patient is a gentleman who was admitted with hypoxia and respiratory symptoms. He was thought to have pneumonia and was began on treatment. He has been febrile to 102.7 on this admission. He has been coughing for 2 days. The night before admission he was up all night because of coughing. The patient has never smoked. He does have a chronic cough but it is never this severe. The patient denies any abdominal pain. His appetite has been good. He has no nausea either before or after eating. No black or bloody bowel movements. He has not had a recent colonoscopy. No vomiting. [place] he had jaundice that was never investigated. He has not been jaundiced since. He has had no major abdominal procedures. He has never been tested for hepatitis. He enjoys traveling and recently came back from a trip. Denies any heart attacks. He has atrial fibrillation treated with a beta-jovon and anticoagulation. He has not noticed yellow eyes are yellow skin recently. He does not drink. [facility] Medical History Atrial fibrillation (Acute) Hyperlipidemia (Acute) Hypertension (Acute) Surgical History Hip joint replacement status (Acute) Family History (Updated 09/14/18 @ 18:33 by Rosalie Castrejon MD) Brother Atrial fibrillation Social History marital status: household members: spouse Smoking Status: Never smoker alcohol intake: never substance use type: does not use Family History Brother Atrial fibrillation Social History marital status: household members: spouse Smoking Status: Never smoker alcohol intake: never substance use type: does not use Meds Home Medications Medication Instructions Recorded Confirmed Type atorvastatin 10 mg PO DAILY 09/14/18 09/14/18 History dabigatran etexilate [Pradaxa] 150 mg PO DAILY 09/14/18 09/14/18 History losartan 50 mg PO DAILY 09/14/18 09/14/18 History metoprolol tartrate 25 mg PO BID 09/14/18 09/14/18 History multivitamin 1 tab PO DAILY 09/14/18 09/14/18 History Allergies Allergy/AdvReac Type Severity Reaction Status Date / Time No Known Drug Allergies Allergy Verified 09/14/18 11:35 Review of Systems Review of Systems Please see above for cardiac and pulmonary history. He had has to get up at night 2 or 3 times to urinate because of an enlarged prostate. No blood in his urine. No seizures or blackouts. Has elevated cholesterol. Can be forgetful at times as he has gotten older. Exam Vital Signs (past 8 hours): - 09/15/18 11:52 09/15/18 11:55 09/15/18 13:02 Temperature 99.1 F 99.1 F Pulse Rate 110 H 87 Respiratory Rate 20 Blood Pressure 137/74 Pulse Oximetry 95 93 09/15/18 13:41 09/15/18 15:35 09/15/18 15:47 Temperature 102.7 F H Pulse Rate 83 91 H Respiratory Rate 16 18 Blood Pressure 131/75 Pulse Oximetry 96 95 95 09/15/18 18:05 09/15/18 18:31 Temperature 100.0 F H 100.0 F H Pulse Rate Respiratory Rate Blood Pressure Pulse Oximetry Oxygen Delivery Method Venturi Mask Oxygen Flow Rate 9 Narrative Exam Narrative: Engaging cooperative gentleman no apparent distress. Eyes are slightly yellowed. Pupils equal round reactive to light. Conjunctiva are pale pink. Patient has a fullness in the base of his neck where his thyroid is. Trachea mobile. His lungs he has diffuse rhonchi throughout. Sounds a little tight. Percuss is equally. Heart irregularly irregular. I do not hear any bruits in the neck. No heave lifted thrill. I do not appreciate a murmur or gallop. His abdomen is protuberant and soft. I can't elicit any tenderness even with fairly deep palpation in the upper abdomen. Alert and oriented x3. Speech rate and content are appropriate. Affect appropriate. Objective Imaging CT scan - chest: My impression: I reviewed the CT scan of the chest. I agree with the radiologist that there is no infiltrate and no significant pleural effusion. Cardiac silhouette is big. He has a large calcified gallstone in his gallbladder. Spleen appears to be fairly normal in size. Thyroid seems rather full and it the trachea may be shifted to the right. Labs Result Diagrams: 09/15/18 05:00 09/15/18 05:00 Labs: Laboratory Results - last 24 hr 09/14/18 09/15/18 09/15/18 19:36 05:00 05:00 WBC 7.4 RBC 3.26 L Hgb 11.3 L Hct 32.0 L MCV 98.2 MCH 34.6 H MCHC 35.2 RDW 15.8 H Plt Count 85 L Neut % (Auto) 86.7 H Lymph % (Auto) 6.7 L [place] % (Auto) 6.2 Eos % (Auto) 0.2 L Baso % (Auto) 0.2 Neut # (Auto) 6400 Lymph # (Auto) 500 L [place] # (Auto) 500 Eos # (Auto) 0 Baso # (Auto) 0 Sodium 134 L Potassium 3.7 Chloride 105 Carbon Dioxide 20 L BUN 16 Creatinine 1.20 Estimated GFR 58.0 L BUN/Creatinine Ratio 13.3 Glucose 168 H Calcium 9.4 Total Bilirubin B-Natriuretic Peptide Chlamy pneumoniae PCR Not detected Adenovirus (PCR) Not detected B.parapertussis DNA PCR Not detected Coronavirus OC43 (PCR) Not detected Coronavirus HKU1 (PCR) Not detected Coronavirus 229E (PCR) Not detected Coronavirus NL63 (PCR) Not detected Human Metapneumovir PCR Not detected Influenza Type A (PCR) Not detected Influenza Type B (PCR) Not detected M. pneumoniae (PCR) Not detected Parainfluenza 1 (PCR) Not detected Parainfluenza 2 (PCR) Not detected Parainfluenza 3 (PCR) Not detected Parainfluenza 4 (PCR) Not detected RSV (PCR) Not detected Entero/Rhino (PCR) Detected H 09/15/18 09/15/18 05:00 Unknown WBC RBC Hgb Hct MCV MCH MCHC RDW Plt Count Neut % (Auto) Lymph % (Auto) [place] % (Auto) Eos % (Auto) Baso % (Auto) Neut # (Auto) Lymph # (Auto) [place] # (Auto) Eos # (Auto) Baso # (Auto) Sodium Potassium Chloride Carbon Dioxide BUN Creatinine Estimated GFR BUN/Creatinine Ratio Glucose Calcium Total Bilirubin 3.0 H B-Natriuretic Peptide 453 H Chlamy pneumoniae PCR Adenovirus (PCR) B.parapertussis DNA PCR Coronavirus OC43 (PCR) Coronavirus HKU1 (PCR) Coronavirus 229E (PCR) Coronavirus NL63 (PCR) Human Metapneumovir PCR Influenza Type A (PCR) Influenza Type B (PCR) M. pneumoniae (PCR) Parainfluenza 1 (PCR) Parainfluenza 2 (PCR) Parainfluenza 3 (PCR) Parainfluenza 4 (PCR) RSV (PCR) Entero/Rhino (PCR) Assessment & Plan (1) Hyperbilirubinemia: Problem details: Etiology uncertain. Bilirubin has dropped to 3.0 and will be rechecked tomorrow. US liver imaging shows cholelithiasis, gallbladder wall thickening and probable adenomyomatosis. Consider surgical consult. No abdominal pain complaint. Recheck CBC tomorrow. Current visit: Yes Status: Acute (2) Atrial fibrillation: Problem details: Chronic, continue home medications including metoprolol and Pradaxa Current visit: Yes Status: Acute (3) Acute respiratory failure with hypoxia: Problem details: Will continue oxygen, will add albuterol nebulized given his wheezing. Present on admission Consider adding steroids. The elevated BNP and the chest x-ray/CT angiogram of the chest appearance suggests a cardiac component and so an echocardiogram will be ordered. Current visit: Yes Status: Acute Assessment & Plan narrative: He clearly has respiratory issues on exam with hypoxia. This would preclude any major surgical intervention to that is co ntrolled as I doubt his gallbladder is the source of those symptoms. I do agree there is no infiltrate though on chest x-ray so this is probably not bacterial at least. He does have a positive viral study. I do not know if his anemia is related to his age or some other problem. He is on Pradaxa and could have a CT of the loss of blood somewhere. He has had no recent colonoscopy. His platelet count being 85 however is another worry. Could he have primary marrow issues causing anemia and thrombocytopenia. I do not know. His spleen does not seem to be particularly large so that leads me away from a splenic sequestration. His MCV is normal but it might be useful to have some iron and vitamin studies performed. He has a history in the distant past as a teen of jaundice. It is possibly he has some primary liver issue related to a chronic viral illness. Will check hepatitis studies. He is in need of a cardiac workup should an operation be entertained, and that at this time is not what I am entertaining. If indeed this gallbladder issue comes to for a serna as a source of his problem I would probably percutaneously drain him rather than attempt operate given his pulmonary issues at this time. I am not certain if any of his medications other than atorovastin could have an effect on his liver. [place] I do not know if there is any process presently going on there that could account for his symptomatology. I have ordered some labs and Dr. Miranda will follow up in the morning.
[2018-09-15] MEDS: ATORVASTATIN 10 MG TABLET PO (20:44)
[2018-09-16] VITALS (13 sets, daily range): BP systolic 117–151; BP diastolic 65–79; PULSE 74–113; RESP 18–20; TEMP 36.4–37.4; O2SAT 91–97
[2018-09-16 05:39] LABS: Add Manual Diff / Slide Review NO; Basophils Absolute Auto 0 /uL (0-100); Basophils Percent Auto 0.2 % (0-2); Eosinophils Absolute Auto 100 /uL (0-450); Eosinophils Percent Auto 0.9 % (2-4); Hematocrit 31.4 % (41-53); Hemoglobin 11.2 g/dL (13.5-17.5); Lymphocytes Absolute Auto 700 /uL (1100-4500); Lymphocytes Percent Auto 11.4 % (25-40); Mean Corpuscular HGB Conc 35.8 % (30-36); Mean Corpuscular Hemoglobin 34.8 PG (26-34); Mean Corpuscular Volume 97.3 fL (80-100); Monocytes Absolute Auto 500 /uL (0-900); Monocytes Percent Auto 8.3 % (3-14); Neutrophils Absolute Auto 4900 /uL (1500-7000); Neutrophils Percent Auto 79.2 % (50-75); Platelet Count 80 X10^3/uL (150-400); Red Blood Cell Count 3.22 X10^6/uL (4.5-5.9); Red Cell Distribution Width 15.7 % (11.6-14.8); White Blood Cell Count 6.2 X10^3/uL (4.5-11.0)
[2018-09-16 05:49] LABS: Monotest Negative (Negative)
[2018-09-16] MEDS: ALBUTEROL 2.5 MG/3 ML NEB (ADULT) INH ×2 (05:52→17:48)
[2018-09-16 05:55] LABS: Bilirubin Direct 0.5 mg/dL (0.0-0.4); Bilirubin Total 2.6 mg/dL (0.2-1.3)
[2018-09-16 06:00] LABS: HEMOLYSIS < 15 (0-50); Iron 22 ug/dL (49-181)
[2018-09-16 06:11] LABS: Percent Iron Saturation 10 % (20-50); Total Iron Binding Capacity 211 ug/dL (261-462); Transferrin 146 mg/dL (206-381)
[2018-09-16 07:00] LABS: Folate 11.5 ng/mL (2.76-20.0); Vitamin B12 300 pg/mL (239-931)
[2018-09-16] MEDS: DABIGATRAN 75 MG CAPSULE 150 MG PO (08:43)
[2018-09-16] MEDS: LOSARTAN 50 MG TABLET PO (08:44)
[2018-09-16] MEDS: DOCUSATE 100 MG CAPSULE PO ×2 (08:44→20:08)
[2018-09-16] MEDS: MULTIVITAMIN 1 TABLET 1 TAB PO (08:45)
[2018-09-16] MEDS: guaiFENesin Solution 100 MG/5 ML UDC PO ×3 (08:45→20:08)
[2018-09-16] MEDS: METOPROLOL IR 25 MG TABLET PO ×2 (08:45→20:08)
[2018-09-16] MEDS: FUROSEMIDE 40 MG/4 ML VIAL IV (09:51)
[2018-09-16] MEDS: SODIUM CHLORIDE 0.9% 1,000 ML 84 ML IV (09:51)
[2018-09-16] MEDS: methylPREDNISolone 125 MG/2 ML VIAL 60 MG IV ×2 (10:39→18:51)
--- NOTE | 2018-09-16 10:43 | P.PN_ITS ---
Subjective Date Patient Seen: 09/16/18 Time Patient Seen: 10:43 Interval history: He is seen today to follow-up his rhino virus respiratory infection, hypoxia with possible congestive heart failure, probable COPD, elevated bilirubin with possible pancreatitis/cholecystitis and generalized w eakness. General surgery has seen him yesterday and again today. They reviewed the MRCP and do not seriously suspect a surgical gallbladder condition at this point. His echocardiogram report is still pending. On the MRCP a 2.1 cm stone was seen in the gallbladder and possible pancreatic tail inflammation/fluid was seen.. His platelets are 80 and his INR is 1.8. The bilirubin is down to 2.6. The BNP remains mildly elevated at 453. A viral hepatitis panel is pending. The iron level is 22. He is at 95% on 35% FiO2 venturi mask. Exam Vital Signs (past 8 hours): - 09/16/18 03:17 09/16/18 05:52 09/16/18 07:30 Temperature 98.8 F 97.6 F Pulse Rate 81 85 92 H Respiratory Rate Blood Pressure 139/68 148/65 H Pulse Oximetry 95 95 95 09/16/18 09:48 Temperature Pulse Rate Respiratory Rate Blood Pressure Pulse Oximetry 94 Fraction of Inspired Oxygen 35 Oxygen Delivery Method Venturi Mask Oxygen Flow Rate 9 Narrative Exam Narrative: He is alert and oriented x3. He looks a bit less straining to breathe today. Heart is irregularly irregular without murmur. Lungs are notable for significant wheezing bilaterally. Extremities have no ankle edema. There is no abdominal tenderness and bowel sounds are active. Objective Labs Result Diagrams: 09/16/18 05:21 09/15/18 05:00 Labs: Laboratory Results - last 24 hr 09/15/18 09/16/18 09/16/18 Unknown 05:21 05:21 WBC 6.2 RBC 3.22 L Hgb 11.2 L Hct 31.4 L MCV 97.3 MCH 34.8 H MCHC 35.8 RDW 15.7 H Plt Count 80 L Neut % (Auto) 79.2 H Lymph % (Auto) 11.4 L [place] % (Auto) 8.3 Eos % (Auto) 0.9 L Baso % (Auto) 0.2 Neut # (Auto) 4900 Lymph # (Auto) 700 L [place] # (Auto) 500 Eos # (Auto) 100 Baso # (Auto) 0 Iron 22 L TIBC 211 L % Saturation 10 L Transferrin 146 L Total Bilirubin Direct Bilirubin Conjugated Bilirubin B-Natriuretic Peptide 453 H Vitamin B12 Folate Monoscreen 09/16/18 09/16/18 09/16/18 05:21 05:21 05:21 WBC RBC Hgb Hct MCV MCH MCHC RDW Plt Count Neut % (Auto) Lymph % (Auto) [place] % (Auto) Eos % (Auto) Baso % (Auto) Neut # (Auto) Lymph # (Auto) [place] # (Auto) Eos # (Auto) Baso # (Auto) Iron TIBC % Saturation Transferrin Total Bilirubin 2.6 H Direct Bilirubin 0.5 H Conjugated Bilirubin 0.0 B-Natriuretic Peptide Vitamin B12 300 Folate 11.5 Monoscreen Negative Assessment & Plan Assessment & Plan narrative: (1) Pneumonia: Problem details: Patient was admitted to the hospital with presumed pneumonia, present on admission. He has had a pneumonia shot. His respiratory viral panel is positive for Rhinovirus. Stopped antibiotics yesterday. Recheck CBC today with a white count of 6.2 Qualifiers: Aspiration pneumonia type: Laterality: unspecified laterality Lung location: unspecified part of lung Pneumonia type: due to unspecified organism Qualified Code(s): J18.9 - Pneumonia, unspecified organism Current visit: Yes Status: Acute (2) Acute respiratory failure with hypoxia: Problem details: Will continue oxygen, albuterol and add Solu-Medrol IV today. Present on admission The elevated BNP and the chest x-ray/CT angiogram of the chest appearance suggests a cardiac component and so an echocardiogram was done with reading pending at this time. Current visit: Yes Status: Acute (3) Hypertension: Problem details: Chronic, continue home medication Current visit: Yes Status: Acute (4) Atrial fibrillation: Problem details: Chronic, continue home medications including metoprolol and Pradaxa Current visit: Yes Status: Acute (5) Hyperlipidemia: Problem details: Continue statin, chronic Current visit: Yes Status: Acute (6) Hyperbilirubinemia: Problem details: Etiology uncertain. Bilirubin has dropped to 2.6 and will be rechecked tomorrow. US and MRCP liver imaging shows cholelithiasis, gallbladder wall thickening and probable adenomyomatosis also tail of pancreas inflammation. Surgical consult reviewed and appreciated. No abdominal pain complaint. Current visit: Yes Status: Acute Elevated INR -this appears to be secondary to Pradaxa and possible baseline liver disease Thrombocytopenia -probably chronic to some degree but the platelets have dropped from 106 down to 80 since admission. He is not on Lovenox or heparin. Etiology is unclear, trend is concerning. Probable COPD -add Solu-Medrol today
--- NOTE | 2018-09-16 13:43 | PM.PN.1 ---
Subjective Date Patient Seen: 09/16/18 Time Patient Seen: 12:19 Interval history: 83yo M with respiratory symptoms and rhino virus but findings of hyperbilirubinemia on workup. Imaging shows possible GB wall thickening and trace fluid in setting of possible mild hepatic steatosis. US indicates that thickening is likely adenomyomatosis. MRI also indicates possible mild pancreatitis. TB is down slightly today and direct bili is only 0.5 indicating an other than biliary source. Patient does not now nor has complained of any abdominal pain, fevers, nausea, or change in bowel habits. No pain on exam. Pt notes remote history, as teen, of jaundice episodes but this was never worked up and has not had since. No known liver disease. Hepatic panel pending. INR 1.8 and plt down to 80. Patient feels pretty good overall and asks about when he may get released. No lung disease history, non-smoker, no SOB on exertion at home. Exam Vital Signs (past 8 hours): - 09/16/18 05:52 09/16/18 07:30 09/16/18 09:48 Temperature 97.6 F Pulse Rate 85 92 H Respiratory Rate 18 19 Blood Pressure 148/65 H Pulse Oximetry 95 95 94 09/16/18 11:00 Temperature 97.8 F Pulse Rate 97 H Respiratory Rate 19 Blood Pressure 146/79 H Pulse Oximetry 97 Fraction of Inspired Oxygen 35 Oxygen Delivery Method Venturi Mask Oxygen Flow Rate 9 Narrative Exam Narrative: AAO, NAD, overweight male EOMI, MMM, no scleral icterus unlabored venturi mask soft, nt/nd MAEW visible skin dry and intact Objective Labs Result Diagrams: 09/16/18 05:21 09/15/18 05:00 Labs: Laboratory Results - last 24 hr 09/15/18 09/16/18 09/16/18 Unknown 05:21 05:21 WBC 6.2 RBC 3.22 L Hgb 11.2 L Hct 31.4 L MCV 97.3 MCH 34.8 H MCHC 35.8 RDW 15.7 H Plt Count 80 L Neut % (Auto) 79.2 H Lymph % (Auto) 11.4 L [place] % (Auto) 8.3 Eos % (Auto) 0.9 L Baso % (Auto) 0.2 Neut # (Auto) 4900 Lymph # (Auto) 700 L [place] # (Auto) 500 Eos # (Auto) 100 Baso # (Auto) 0 Iron 22 L TIBC 211 L % Saturation 10 L Transferrin 146 L Total Bilirubin Direct Bilirubin Conjugated Bilirubin B-Natriuretic Peptide 453 H Vitamin B12 Folate Monoscreen 09/16/18 09/16/18 09/16/18 05:21 05:21 05:21 WBC RBC Hgb Hct MCV MCH MCHC RDW Plt Count Neut % (Auto) Lymph % (Auto) [place] % (Auto) Eos % (Auto) Baso % (Auto) Neut # (Auto) Lymph # (Auto) [place] # (Auto) Eos # (Auto) Baso # (Auto) Iron TIBC % Saturation Transferrin Total Bilirubin 2.6 H Direct Bilirubin 0.5 H Conjugated Bilirubin 0.0 B-Natriuretic Peptide Vitamin B12 300 Folate 11.5 Monoscreen Negative Assessment & Plan Assessment & Plan narrative: - interesting picture but unlikely acute biliary or hepatic source --> no pain or symptoms --> TB resolving and is predominantly indirect, spleen normal in appearance but anemic and thrombocytopenic - hepatic panel pending - celia diet - OOB, mobilize - will follow along
--- NOTE | 2018-09-16 14:10 | PC.NURSE ---
DAY SHIFT NOTE: Patient doing well this shift. Tolerating room air with saturations 92-94%. Using call light appropriately. Denies pain. ECHO done this shift. No acute distress, will continue to monitor.
[2018-09-16] MEDS: ATORVASTATIN 10 MG TABLET PO (20:08)
[2018-09-17 01:51] VITALS: BP 131/61; PULSE 72; RESP 19; TEMP 36.6; O2SAT 93
[2018-09-17] MEDS: methylPREDNISolone 125 MG/2 ML VIAL 60 MG IV ×2 (04:12→11:16)
--- NOTE | 2018-09-17 04:30 | PC.NURSE ---
Pt did desat to high 80's while sleeping, put on 2L NC to stay above 92%.
[2018-09-17 05:00] VITALS: BP 145/89; PULSE 99; RESP 19; TEMP 36.6; O2SAT 96
[2018-09-17 05:03] VITALS: PULSE 76; RESP 20; O2SAT 96
[2018-09-17] MEDS: ALBUTEROL 2.5 MG/3 ML NEB (ADULT) INH (05:03)
[2018-09-17 05:33] LABS: Add Manual Diff / Slide Review NO; Basophils Absolute Auto 0 /uL (0-100); Basophils Percent Auto 0.1 % (0-2); Eosinophils Absolute Auto 0 /uL (0-450); Hematocrit 33.1 % (41-53); Hemoglobin 11.6 g/dL (13.5-17.5); Lymphocytes Absolute Auto 500 /uL (1100-4500); Lymphocytes Percent Auto 8.4 % (25-40); Mean Corpuscular HGB Conc 35.1 % (30-36); Mean Corpuscular Hemoglobin 34.3 PG (26-34); Mean Corpuscular Volume 97.7 fL (80-100); Monocytes Absolute Auto 300 /uL (0-900); Neutrophils Absolute Auto 5200 /uL (1500-7000); Neutrophils Percent Auto 86.5 % (50-75); Platelet Count 88 X10^3/uL (150-400); Red Blood Cell Count 3.38 X10^6/uL (4.5-5.9); Red Cell Distribution Width 15.2 % (11.6-14.8)
[2018-09-17 05:51] LABS: Alanine Aminotransferase 21 IU/L (21-72); Albumin 3.3 g/dL (3.5-5.0); Albumin Globulin Ratio 0.6 (1.0-2.8); Alkaline Phosphatase 64 U/L (38-126); Aspartate Aminotransferase 21 IU/L (17-59); BUN Creatinine Ratio 21.1 (6-22); Bilirubin Total 2.3 mg/dL (0.2-1.3); Blood Urea Nitrogen 19 mg/dL (9-20); Calcium 9.4 mg/dL (8.4-10.2); Carbon Dioxide 23 mmol/L (22-32); Chloride 106 mmol/L (98-107); Estimated Glomerular Filt Rate > 60.0 mL/min (>60); Globulin 5.1 g/dL (1.7-4.1); Glucose 253 mg/dL (80-110); HEMOLYSIS < 15 (0-50); Potassium 3.8 mmol/L (3.4-5.1); Sodium 137 mmol/L (137-145); Total Protein 8.4 g/dL (6.3-8.2)
[2018-09-17 06:01] LABS: B Type Natriuretic Peptide 533 (<100)
[2018-09-17 08:00] VITALS: BP 141/87; PULSE 90; RESP 18; TEMP 36.7; O2SAT 92
[2018-09-17] MEDS: DABIGATRAN 75 MG CAPSULE 150 MG PO (09:14)
[2018-09-17] MEDS: LOSARTAN 50 MG TABLET PO (09:16)
[2018-09-17] MEDS: METOPROLOL IR 25 MG TABLET PO (09:16)
[2018-09-17] MEDS: DOCUSATE 100 MG CAPSULE PO (09:16)
[2018-09-17] MEDS: MULTIVITAMIN 1 TABLET 1 TAB PO (09:16)
[2018-09-17] MEDS: SODIUM CHLORIDE 0.9% 1,000 ML 84 ML IV (10:05)
--- NOTE | 2018-09-17 10:52 | PM.PN.1 ---
Subjective Date Patient Seen: 09/17/18 Time Patient Seen: 09:52 Interval history: Off venturi mask, breathing and speaking comfortably. Celia diet. No abd pain, no other complaints. Hoping to leave soon. Exam Vital Signs (past 8 hours): - 09/17/18 05:00 09/17/18 05:03 09/17/18 08:00 Temperature 97.9 F 98.0 F Pulse Rate 99 H 76 90 Respiratory Rate 19 20 18 Blood Pressure 145/89 H 141/87 H Pulse Oximetry 96 96 92 Fraction of Inspired Oxygen 21 Oxygen Delivery Method Room Air Oxygen Flow Rate 0 Narrative Exam Narrative: AAO, NAD, overweight male EOMI, MMM, no scleral icterus unlabored RA soft, nt/nd MAEW visible skin dry and intact Objective Labs Result Diagrams: 09/17/18 05:08 09/17/18 05:08 Labs: Laboratory Results - last 24 hr 09/17/18 09/17/18 09/17/18 05:08 05:08 05:08 WBC 6.0 RBC 3.38 L Hgb 11.6 L Hct 33.1 L MCV 97.7 MCH 34.3 H MCHC 35.1 RDW 15.2 H Plt Count 88 L Neut % (Auto) 86.5 H Lymph % (Auto) 8.4 L [place] % (Auto) 5.0 Eos % (Auto) 0.0 L Baso % (Auto) 0.1 Neut # (Auto) 5200 Lymph # (Auto) 500 L [place] # (Auto) 300 Eos # (Auto) 0 Baso # (Auto) 0 Sodium 137 Potassium 3.8 Chloride 106 Carbon Dioxide 23 BUN 19 Creatinine 0.90 Estimated GFR > 60.0 BUN/Creatinine Ratio 21.1 Glucose 253 H Calcium 9.4 Total Bilirubin 2.3 H AST 21 ALT 21 Alkaline Phosphatase 64 B-Natriuretic Peptide 533 H Total Protein 8.4 H Albumin 3.3 L Globulin 5.1 H Albumin/Globulin Ratio 0.6 L Assessment & Plan Assessment & Plan narrative: - interesting picture but unlikely acute biliary or hepatic source --> no pain or symptoms --> TB continues to improve and is predominantly indirect, spleen normal in appearance but anemic and thrombocytopenic - hepatic panel pending - celia diet - OOB, mobilize - will follow peripherally while in house, pt may FU with PCP as outpatient for further workup if ready to leave
--- NOTE | 2018-09-17 10:52 | PC.NURSE ---
Pt is A&Ox3, he denies pain or cough at this time. Offered cough syrup and refused. He is up with walker and sba. Ate 100% of his breakfast. Sitting up in chair and chatting on the phone. Pt is pleasant and cooperative with all care.
[2018-09-17 13:00] VITALS: BP 133/66; PULSE 93; RESP 16; TEMP 36.7; O2SAT 95
--- NOTE | 2018-09-17 15:40 | CM.DPNOTE ---
DCP: continued: case discussed in Team Rounds. Care team reports pt is improving greatly, is mobilizing at SBA in room and at that time was only on [address] Miranda has seen pt today and Dr. Rocha just called to say she is seeing pt now and he will d/c to home today and that he is comfortable with the idea of d/c.
--- NOTE | 2018-09-17 16:51 | PM.DS.1 ---
History of Present Illness Date Patient Seen: 09/14/18 Chief complaint: congestion,weak,constant cough Narrative: Written by Dr. Castrejon: The patient is an 83-year-old male with a history of atrial fibrillation on Pradaxa, hypertension, hyperlipidemia who was in his usual state of health until a few days ago. Patient was on a 6 week trip to [place] where he was in [place] and [place]. He reports last night he developed a cough which is nonproductive. He has had fever, shortness of breath, and wheezing. He reports no hemoptysis. He does not have a productive cough. He denies any chest pain. He has chronic atrial fibrillation. The patient was weak cough and short of breath. He was seen in the emergency department. Initially his fever was noted to be 103. He had a chest x-ray which suggested a pneumonia. They were planning to discharge him home however the patient was noted to be hypoxic on room air. His saturation dipped to 84-88%. A CT angio of the chest was obtained to rule out PE. There was no evidence of PE on the CT. In addition the patient was found to have an elevated bilirubin. He had an abdominal ultrasound which was unremarkable. The patient was admitted to the hospital for inpatient treatment of pneumonia. He reports no headache blurred vision or double vision. He has no nausea vomiting or diarrhea. He denies any swelling in his ankles. He has no joint pains. No dysuria hematuria or pyuria. Further review of systems is negative. Discharge Providers Date of admission: 09/14/18 16:31 Discharge Date: 09/17/18 Primary care physician: Valeriano Leal MD Consults: 09/14/18 11:16 Consult to Respiratory Therapy Evaluate & Treat Comment: Physician Instructions: Evaluate and treat 09/15/18 17:14 Consult to General Surgery Routine Comment: Consulting Provider: Darvin Allen Reason for consultation: Hyperbilirubinemia Has provider been notified: Yes Discharge provider: Becca Rocha DO Summary Discharge Diagnosis: 1. Acute Rhinovirus upper respiratory tract infection, present on admission. Resolved. 2. Acute hypoxemic respiratory failure, present on admission. Resolved. 3. Hyperbilirubinemia chronic, present on admission. Stable. 4. Hypertension, chronic, present on admission. Stable. 5. Chronic atrial fibrillation, present on admission. Stable. 6. Hyperlipidemia chronic, present on admission. Stable. 7. Probable underlying liver disease, likely chronic, present on admission. Presumed stable. Hospital Course: 1. Acute Rhinovirus upper respiratory tract infection, present on admission. Resolved. -Initially thought to represent pneumonia but not supported by laboratory, CXR or CTA. Now known URI as it quickly resolved with supportive care. -Respiratory viral PCR positive for Rhinovirus. Stopped antibiotics. 2. Acute hypoxemic respiratory failure, present on admission. Resolved. -Continued supplemental oxygen as needed to keep oxygen saturation above 88% then titrated off as tolerated. -Continued albuterol every 6 hours as needed. -Started glucocorticoids for wheezing and discharged with prednisone 40 mg daily to complete 5 day steroid burst. Suspected possible underlying COPD and recommened PFT after acute infection resolves. -The elevated BNP and the chest x-ray/CT angiogram of the chest appearance suggests a cardiac component and so an echocardiogram was performed and demonstrated possible diastolic dysfunction stage II but difficult to assess due to a. fib. 3. Hyperbilirubinemia chronic, present on admission. Stable. -Etiology unclear but likely delivery representative of [place] disease and biliary stasis due to acute infection. -Initial bilirubin 3.6. Trended down to 2.3. Mostly indirect. -US and MRCP liver imaging demonstrated cholelithiasis, gallbladder wall thickening with probable adenomyomatosis and incidental pancreatic tail inflammation. Surgery consulted and recommended continued surveillance and follow up with PCP. 4. Hypertension, chronic, present on admission. Stable. -Continued home losartan 50 mg daily and metoprolol tartrate 25 mg twice daily. 5. Chronic atrial fibrillation, present on admission. Stable. -Continue home metoprolol tartrate 25 mg twice daily and Pradaxa 150 mg twice daily. 6. Hyperlipidemia chronic, present on admission. Stable. -Continue atorvastatin 10 mg daily. 7. Probable underlying liver disease, likely chronic, present on admission. Presumed stable. -Patient has probable underlying liver disease with elevated INR at 1.8, thrombocytopenia 106 and hypoalbunemia at 3.3. Also liklely some portion is due to inflammatory (i.e. platelets dropped from 106 down to 80 since admission). -Recommended follow-up and continued work-up with PCP. Status at Discharge Functional status at discharge: independent ambulation Overall status at discharge: patient is progressing back to baseline Exam Vital Signs (past 8 hours): - 09/17/18 13:00 Temperature 98.1 F Pulse Rate 93 H Respiratory Rate 16 Blood Pressure 133/66 Pulse Oximetry 95 Fraction of Inspired Oxygen 21 Oxygen Delivery Method Room Air Oxygen Flow Rate 0 Narrative Exam Narrative: General: Elderly gentleman sitting in bedside chair and in no acute distress, well-developed, well-nourished, appropriately interactive. HEENT: Normocephalic, atraumatic. External ears without defect. Pupils equal, round, and reactive to light and accommodation. Anicteric sclerae, moist conjunctivae, and no lid lag. Oropharynx free of erythema and cobble stoning with moist mucosa. Neck: Supple with full range of motion. No lymphadenopathy or thyromegaly. Cardiovascular: Irregularly irregular without murmurs, rubs, or gallops appreciated. Pulmonary: Clear to auscultation bilaterally with occasional end expiratory wheeze and fine bibasilar crackles. Normal respiratory effort with no use of accessory muscles. Abdomen: Soft, bowel sounds present, nontender, nondistended. No hepatosplenomegaly or masses appreciated. Extremities: No clubbing, cyanosis, or edema. Skin: Normal temperature, turgor, and texture; no rash, ulcers, or subcutaneous nodules appreciated. Neurological: Cranial nerves grossly intact. Normal muscle strength, tone, and bulk. Reflexes, coordination, and sensory function within normal limits. No known gait impairment. Psychiatric: Normal mood and affect. Alert and oriented to person, place, and time. Objective Labs Result Diagrams: 09/17/18 05:08 09/17/18 05:08 Labs: Laboratory Results - last 24 hr 09/17/18 09/17/18 09/17/18 05:08 05:08 05:08 WBC 6.0 RBC 3.38 L Hgb 11.6 L Hct 33.1 L MCV 97.7 MCH 34.3 H MCHC 35.1 RDW 15.2 H Plt Count 88 L Neut % (Auto) 86.5 H Lymph % (Auto) 8.4 L [place] % (Auto) 5.0 Eos % (Auto) 0.0 L Baso % (Auto) 0.1 Neut # (Auto) 5200 Lymph # (Auto) 500 L [place] # (Auto) 300 Eos # (Auto) 0 Baso # (Auto) 0 Sodium 137 Potassium 3.8 Chloride 106 Carbon Dioxide 23 BUN 19 Creatinine 0.90 Estimated GFR > 60.0 BUN/Creatinine Ratio 21.1 Glucose 253 H Calcium 9.4 Total Bilirubin 2.3 H AST 21 ALT 21 Alkaline Phosphatase 64 B-Natriuretic Peptide 533 H Total Protein 8.4 H Albumin 3.3 L Globulin 5.1 H Albumin/Globulin Ratio 0.6 L Discharge Plan Discharge Plan Patient Disposition: Home Discharge comment: You are being discharged home. Please follow-up with your PCP, Dr. Leal, in the next 1 week regarding your hospitalization and follow-up pending liver tests. You have rhinovirus upper respiratory tract infection which will resolve by itself. You have been prescribed prednisone 40 mg daily for three additional days to complete a 5 day burst. You may take mucinex as needed for excessive or thick sputum. Try to get plenty of rest and stay well-hydrated. You may want to get a pulmonary function test or PFT in 2-3 months after this has resolved to make sure you dont have COPD, asthma, or an underlying lung disease. Discharge Med Rec/Prescriptions Prescriptions: New prednisone 20 mg Tablet 40 mg PO DAILY Qty: 3 RF: 0 guaifenesin [Mucinex] 1,200 mg tablet extended release 12hr 1,200 mg PO Q12H PRN (Reason: excessive mucus) Qty: 10 RF: 0 Continued losartan 50 mg tablet 50 mg PO DAILY RF: 0 atorvastatin 10 mg tablet 10 mg PO DAILY RF: 0 metoprolol tartrate 50 mg tablet 25 mg PO BID RF: 0 dabigatran etexilate 150 mg capsule 150 mg PO DAILY RF: 0 multivitamin Tablet 1 tab PO DAILY RF: 0 Follow up/Referrals: Valeriano Leal MD [Primary Care Provider] - Provider Discharge Instructions Diet: Diet as Tolerated, Low-fat, Low-sodium and Low-cholesterol Visit Report/Discharge Packet Instructions: Prednisone, Guaifenesin Discharge Data Primary Care Provider: Valeriano Leal Attending Provider: Rosalie Castrejon Admit Date/Time: 09/14/18 16:31 Discharges patient from system. Discharge Date/Time: 09/17/18 17:00
--- NOTE | 2018-09-17 16:54 | P.DS_ITS ---
History of Present Illness Date Patient Seen: 09/14/18 Chief complaint: congestion,weak,constant cough Narrative: Written by Dr. Castrejon: The patient is an 83-year-old male with a history of atrial fibrillation on Pradaxa, hypertension, hyperlipidemia who was in his usual state of health until a few days ago. Patient was on a 6 week trip to [place] where he was in [place] and [place]. He reports last night he developed a cough which is nonproductive. He has had fever, shortness of breath, and wheezing. He reports no hemoptysis. He does not have a productive cough. He denies any chest pain. He has chronic atrial fibrillation. The patient was weak cough and short of breath. He was seen in the emergency department. Initially his fever was noted to be 103. He had a chest x-ray which suggested a pneumonia. They were planning to discharge him home however the patient was noted to be hypoxic on room air. His saturation dipped to 84-88%. A CT angio of the chest was obtained to rule out PE. There was no evidence of PE on the CT. In addition the patient was found to have an elevated bilirubin. He had an abdominal ultrasound which was unremarkable. The patient was admitted to the hospital for inpatient treatment of pneumonia. He reports no headache blurred vision or double vision. He has no nausea vomiting or diarrhea. He denies any swelling in his ankles. He has no joint pains. No dysuria hematuria or pyuria. Further review of systems is negative. Discharge Providers Date of admission: 09/14/18 16:31 Discharge Date: 09/17/18 Primary care physician: Valeriano Leal MD Consults: 09/14/18 11:16 Consult to Respiratory Therapy Evaluate & Treat Comment: Physician Instructions: Evaluate and treat 09/15/18 17:14 Consult to General Surgery Routine Comment: Consulting Provider: Darvin Allen Reason for consultation: Hyperbilirubinemia Has provider been notified: Yes Discharge provider: Becca Rocha DO Summary Discharge Diagnosis: 1. Acute Rhinovirus upper respiratory tract infection, present on admission. Resolved. 2. Acute hypoxemic respiratory failure, present on admission. Resolved. 3. Hyperbilirubinemia chronic, present on admission. Stable. 4. Hypertension, chronic, present on admission. Stable. 5. Chronic atrial fibrillation, present on admission. Stable. 6. Hyperlipidemia chronic, present on admission. Stable. 7. Probable underlying liver disease, likely chronic, present on admission. Presumed stable. Hospital Course: 1. Acute Rhinovirus upper respiratory tract infection, present on admission. Resolved. -Initially thought to represent pneumonia but not supported by laboratory, CXR o r CTA. Now known URI as it quickly resolved with supportive care. -Respiratory viral PCR positive for Rhinovirus. Stopped antibiotics. 2. Acute hypoxemic respiratory failure, present on admission. Resolved. -Continued supplemental oxygen as needed to keep oxygen saturation above 88% then titrated off as tolerated. -Continued albuterol every 6 hours as needed. -Started glucocorticoids for wheezing and discharged with prednisone 40 mg daily to complete 5 day steroid burst. Suspected possible underlying COPD and recommened PFT after acute infection resolves. -The elevated BNP and the chest x-ray/CT angiogram of the chest appearance suggests a cardiac component and so an echocardiogram was performed and demonstrated possible diastolic dysfunction stage II but difficult to assess due to a. fib. 3. Hyperbilirubinemia chronic, present on admission. Stable. 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 -Initial bilirubin 3.6. Trended down to 2.3. Mostly indirect. -US and MRCP liver imaging demonstrated cholelithiasis, gallbladder wall thickening with probable adenomyomatosis and incidental pancreatic tail inflamma tion. Surgery consulted and recommended continued surveillance and follow up with PCP. 4. Hypertension, chronic, present on admission. Stable. -Continued home losartan 50 mg daily and metoprolol tartrate 25 mg twice daily. 5. Chronic atrial fibrillation, present on admission. Stable. -Continue home metoprolol tartrate 25 mg twice daily and Pradaxa 150 mg twice daily. 6. Hyperlipidemia chronic, present on admission. Stable. -Continue atorvastatin 10 mg daily. 7. Probable underlying liver disease, likely chronic, present on admission. Presumed stable. -Patient has probable underlying liver disease with elevated INR at 1.8, thrombocytopenia 106 and hypoalbunemia at 3.3. Also liklely some portion is due to inflammatory (i.e. platelets dropped from 106 down to 80 since admission). -Recommended follow-up and continued work-up with PCP. Status at Discharge Functional status at discharge: independent ambulation Overall status at discharge: patient is progressing back to baseline Exam Vital Signs (past 8 hours): - 09/17/18 13:00 Temperature 98.1 F Pulse Rate 93 H Respiratory Rate 16 Blood Pressure 133/66 Pulse Oximetry 95 Fraction of Inspired Oxygen 21 Oxygen Delivery Method Room Air Oxygen Flow Rate 0 Narrative Exam Narrative: General: Elderly gentleman sitting in bedside chair and in no acute distress, well-developed, well-nourished, appropriately interactive. HEENT: Normocephalic, atraumatic. External ears without defect. Pupils equal, round, and reactive to light and accommodation. Anicteric sclerae, moist conjunctivae, and no lid lag. Oropharynx free of erythema and cobble stoning with moist mucosa. Neck: Supple with full range of motion. No lymphadenopathy or thyromegaly. Cardiovascular: Irregularly irregular without murmurs, rubs, or gallops ap preciated. Pulmonary: Clear to auscultation bilaterally with occasional end expiratory wheeze and fine bibasilar crackles. Normal respiratory effort with no use of accessory muscles. Abdomen: Soft, bowel sounds present, nontender, nondistended. No hepatosplenomegaly or masses appreciated. Extremities: No clubbing, cyanosis, or edema. Skin: Normal temperature, turgor, and texture; no rash, ulcers, or subcutaneous nodules appreciated. Neurological: Cranial nerves grossly intact. Normal muscle strength, tone, and bulk. Reflexes, coordination, and sensory function within normal limits. No known gait impairment. Psychiatric: Normal mood and affect. Alert and oriented to person, place, and ti me. Objective Labs Result Diagrams: 09/17/18 05:08 09/17/18 05:08 Labs: Laboratory Results - last 24 hr 09/17/18 09/17/18 09/17/18 05:08 05:08 05:08 WBC 6.0 RBC 3.38 L Hgb 11.6 L Hct 33.1 L MCV 97.7 MCH 34.3 H MCHC 35.1 RDW 15.2 H Plt Count 88 L Neut % (Auto) 86.5 H Lymph % (Auto) 8.4 L [place] % (Auto) 5.0 Eos % (Auto) 0.0 L Baso % (Auto) 0.1 Neut # (Auto) 5200 Lymph # (Auto) 500 L [place] # (Auto) 300 Eos # (Auto) 0 Baso # (Auto) 0 Sodium 137 Potassium 3.8 Chloride 106 Carbon Dioxide 23 BUN 19 Creatinine 0.90 Estimated GFR > 60.0 BUN/Creatinine Ratio 21.1 Glucose 253 H Calcium 9.4 Total Bilirubin 2.3 H AST 21 ALT 21 Alkaline Phosphatase 64 B-Natriuretic Peptide 533 H Total Protein 8.4 H Albumin 3.3 L Globulin 5.1 H Albumin/Globulin Ratio 0.6 L Discharge Plan Discharge Plan Patient Disposition: Home Discharge comment: You are being discharged home. Please follow-up with your PCP, Dr. Leal, in the next 1 week regarding your hospitalization and follow- up pending liver tests. You have rhinovirus upper respiratory tract infection which will resolve by itself. You have been prescribed prednisone 40 mg daily f or three additional days to complete a 5 day burst. You may take mucinex as needed for excessive or thick sputum. Try to get plenty of rest and stay well- hydrated. You may want to get a pulmonary function test or PFT in 2-3 months after this has resolved to make sure you dont have COPD, asthma, or an underlying lung disease. Discharge Med Rec/Prescriptions Prescriptions: New prednisone 20 mg Tablet 40 mg PO DAILY Qty: 3 RF: 0 guaifenesin [Mucinex] 1,200 mg tablet extended release 12hr 1,200 mg PO Q12H PRN (Reason: excessive mucus) Qty: 10 RF: 0 Continued losartan 50 mg tablet 50 mg PO DAILY RF: 0 atorvastatin 10 mg tablet 10 mg PO DAILY RF: 0 metoprolol tartrate 50 mg tablet 25 mg PO BID RF: 0 dabigatran etexilate 150 mg capsule 150 mg PO DAILY RF: 0 multivitamin Tablet 1 tab PO DAILY RF: 0 Follow up/Referrals: Valeriano Leal MD [Primary Care Provider] - Provider Discharge Instructions Diet: Diet as Tolerated, Low-fat, Low-sodium and Low-cholesterol Visit Report/Discharge Packet Instructions: Prednisone, Guaifenesin Discharge Data Primary Care Provider: Valeriano Leal Attending Provider: Rosalie Castrejon Admit Date/Time: 09/14/18 16:31 Discharges patient from system. Discharge Date/Time: 09/17/18 17:00
--- NOTE | 2018-09-17 17:49 | PC.NURSE ---
Discharge Note Pt A&O, VSS, 94% on RA, no pain. Pt given discharge and follow-up instructions. No question or concerns. Prescriptions sent to pt's pharmacy. Pt taken to personal vehicle via wheelchair w/ discharge instructions and personal belongings. Pt released to .
[2018-09-18 16:08] LABS: Hepatitis A Antibody IgM NONREACTIVE (NONREACTIVE); Hepatitis B Core Antibody IgM NONREACTIVE (NONREACTIVE); Hepatitis B Surface Antigen NONREACTIVE (NONREACTIVE); Hepatitis C Antibody NONREACTIVE
== END 2018-09-17 17:00 | disposition home or self-care (01) | DRG 189 ==
LOC: ED 16:31 → AC 16:31
PROVIDERS: Family Medicine; Specialist; Admitting Provider Internal Medicine; Emergency Provider Emergency Medicine; PCP Family Medicine; Visit Provider Internal Medicine
DX: J96.01 Acute respiratory failure with hypoxia (principal); J06.9 Acute upper respiratory infection, unspecified; E80.6 Other disorders of bilirubin metabolism; D69.6 Thrombocytopenia, unspecified; I48.2 Chronic atrial fibrillation; D64.9 Anemia, unspecified; K80.20 Calculus of gallbladder without cholecystitis without obstruction; I10 Essential (primary) hypertension; E78.5 Hyperlipidemia, unspecified
CPT/HCPCS: 36415; 36591; 71045; 71046; 71275; 74181; 76705; 80048; 80053; 80074; 81003; 81015; 82247; 82248; 82550; 82607; 82746; 83540; 83550; 83605; 83735; 83880; 84145; 84484; 85025; 85610; 85730; 86318; 87040; 87633; 93005; 93010; 93306; 94640; 94667; 94760; 94762; 96365; 96366; 99231; 99232; 99233; 99285; J1940; J2930; J7050; J7613; Q9967

== ENCOUNTER → 2022-08-23 15:05 | Outpatient (CLI) | payer MEDICARE, SELFPAY ==
[2018-09-14 19:00] VITALS: BMI 26.9
--- NOTE | 2022-08-23 | DI.ECHO.S_ITS ---
[facility]---------+ [facility] +---------+ : : [id number] [place] [place] : : : : [id number] : : : : Phone: [phone] Echocardiogram Report + + :Name: MEEK COREY Study Date: 08/23/2022 Height: 68 in : :[facility] ReadingLocation: Weight: 165 lb : : Gender: Male BSA: 1.9 m2 : :: 1935 Age: 87 yrs BP: 131/61 mmHg: :Reason For Study: PLEURAL EFFUSION : :Ordering Physician: PREM, : :JELANI Performed By: Ioana Giraldo : :Referring: JELANI AMARO : + + Interpretation Summary Mild concentric left ventricular hypertrophy with ejection fraction 55 +/- 5%. Mildly dilated right ventricle with mildly reduced right ventricular systolic function. Severe biatrial enlargement. Mild aortic valve sclerosis. Mild aortic regurgitation. Mild mitral annular calcification. Mild mitral regurgitation. Mild to moderate tricuspid regurgitation. The right ventricular systolic pressure is estimated to be at least 56 mmHg based on an estimated right atrial pressure of 8 mm Hg. Moderate pulmonary hypertension. The ascending aorta is moderately enlarged. There is a large right-sided pleural effusion. Comparison is made with the echocardiogram of 09/16/2018, pleural effusion is new. Procedure: A two-dimensional transthoracic echocardiogram with color flow and Doppler was performed. The study quality was technically adequate. Comparison is made with the echocardiogram of 09/16/2018. The patient was in atrial fibrillation with heart rates between 57-83 bpm during the exam. Left Ventricle: The left ventricle is normal in size. There is mild concentric left ventricular hypertrophy. The estimated left ventricular end diastolic volume is 112 ml. Left ventricular ejection fraction is estimated to be 55 +/- 5%. There are no focal wall motion abnormalities. Diastolic function could not be accurately assessed due to atrial fibrillation. Right Ventricle: The right ventricle is mildly dilated. Right ventricular systolic function is mildly reduced. Atria: There is severe biatrial enlargement. There is no Doppler evidence for an interatrial shunt. Mitral Valve: There is mild mitral annular calcification. The mitral valve leaflets appear to open well. There is mild mitral regurgitation. Aortic Valve: The aortic valve is trileaflet. The aortic valve opens well. There is mild aortic valve sclerosis. There is no aortic valve stenosis. There is mild aortic regurgitation. Tricuspid Valve: The tricuspid valve leaflets are thin and pliable. There is mild to moderate tricuspid regurgitation. The right ventricular systolic pressure is estimated to be at least 56 mmHg based on an estimated right atrial pressure of 8 mm Hg. There is moderate pulmonary hypertension. Pulmonic Valve: The pulmonic valve is not well seen, but is grossly normal. There is mild to moderate pulmonic regurgitation. Great Vessels: The aortic root is borderline dilated. The ascending aorta is moderately enlarged. The IVC is dilated (diameter is greater than 2.1 cm) yet it collapses greater than 50% with a sniff. This suggests a right atrial pressure of 8 mm Hg. Pericardium/ Pleura There is a trivial pericardial effusion noted. There is a large right-sided pleural effusion. MMode/2D Measurements & Calculations LVIDd: 5.3 cm LVOT diam: 2.4 cm LVIDs: 3.8 cm Ao root diam: 4.1 cm FS: 28.4 % asc Aorta Diam: 4.3 cm EPSS: 1.4 cm IVSd: 1.2 cm LVPWd: 0.87 cm LV jimenez. diameter/BSA (cm/m^2): 2.8 LV sys. diameter/BSA (cm/m^2): 2.0 LA A2 area: 30.0 cm2 RA long axis: 6.6 cm LA A4 area: 26.0 cm2 RA area: 28.8 cm2 LA length (vol): 6.7 cm RA vol: 106.4 ml LA vol: 99.1 ml RA : 56.5 ml/m2 LA vol index: 52.6 ml/m2 IVC diam: 2.4 cm RVD1 (basal): 4.3 cm RVD2 (mid): 3.7 cm TAPSE: 1.8 cm Doppler Measurements & Calculations Ao V2 max: 118.2 cm/sec LVOT Max Jeff: 82.4 cm/sec Ao V2 mean: 83.9 cm/sec LV V1 max P.7 mmHg Ao max P.6 mmHg LV V1 VTI: 17.5 cm Ao mean P.2 mmHg EFRAIN(I,D): 2.9 cm2 Ao V2 VTI: 26.5 cm EFRAIN(V,D): 3.1 cm2 sev ratio: 0.66 EFRAIN indexed to BSA (cm^2/m^2): 1.6 MV E max jeff: 110.9 cm/sec TR max jeff: 343.7 cm/sec MV A max jeff: 2.1 cm/sec TR max P.2 mmHg MV E/A: 52.1 PA V2 max: 92.9 cm/sec Med Peak E' Jeff: 6.0 cm/sec PA V2 mean: 61.2 cm/sec E/E' med: 18.6 PA mean P.7 mmHg Lat Peak E' Jeff: 11.3 cm/sec PA pr(Accel): 39.6 mmHg E/E' lat: 9.8 E/e' average: 14.2 MV dec time: 0.17 sec SV(LVOT): 77.9 ml Electronically signed by: Milagro Prater on Reading Physician:08/24/2022 09:20 AM
[2022-08-23 16:33] LABS: Estimated Glomerular Filt Rate > 60 mL/min (>60)
== END ==
PROVIDERS: Radiology Diagnostic Radiology; PCP Internal Medicine; Referring Provider Internal Medicine; Visit Provider Internal Medicine
DX: J90 Pleural effusion, not elsewhere classified (principal); I50.20 Unspecified systolic (congestive) heart failure; I08.3 Combined rheumatic disorders of mitral, aortic and tricuspid valves; I27.20 Pulmonary hypertension, unspecified; I77.89 Other specified disorders of arteries and arterioles
CPT/HCPCS: 36415; 82565; 93306

== ENCOUNTER → 2022-08-24 13:45 | Outpatient (CLI) | payer MEDICARE, SELFPAY ==
[2018-09-14 19:00] VITALS: BMI 26.9
--- NOTE | 2022-08-24 13:46 | DI.CT.S_ITS ---
PROCEDURE: CT SOFT TISSUE NECK W CON INDICATIONS: Pleural effusion, not elsewhere classified TECHNIQUE: After the administration of intravenous contrast, 3.0 mm axial sections acquired from the sella to the aortic arch. Additional oblique axial 3.0 mm sections acquired through the pharynx. 3 mm thick coronal and sagittal reformats were generated. For radiation dose reduction, the following was used: automated exposure control. COMPARISON: [facility], CT, CT CHEST W CON, 08/24/2022, 14:19. [facility], [place], PET NECK TO MID THIGH, 07/14/2022, 13:44. FINDINGS: Image quality: Excellent. Lymph nodes: No enlarged lymph nodes seen throughout the neck. Vessels: Visualized vasculature appears patent. Atherosclerotic calcification is noted. Neck spaces: The oropharynx, nasopharynx, and pharynx demonstrate no mucosal lesions. The vocal cords, false vocal cords, pyriform sinuses, epiglottis, vallecula, and tongue base all appear normal. Extramucosal spaces appear unremarkable. Glands: The parotid and submandibular glands appear normal. The thyroid gland is prominently enlarged, with calcified nodule seen on both sides, left worse than right. A left substernal component is seen. Miscellaneous: Visualized brain and orbits appear normal. There is partial visualization of a moderate to large right-sided pleural effusion. Superficial soft tissues appear normal. Bones: No suspicious bony lesions. Visualized sinuses and mastoids appear unremarkable. Moderate cervical spine degenerative changes can be seen. IMPRESSION: Partially visualized moderately sized right-sided pleural effusion. Abnormal thyroid, with nodules, including calcified nodules, left worse than right. If clinically appropriate, a follow-up thyroid ultrasound could be considered for further evaluation. No additional masses are seen. No enlarged lymph nodes are seen. Dictated by: Estevan Espinoza M.D. on 08/24/2022 at 18:09 Approved by: Estevan Espinoza M.D. on 08/24/2022 at 18:11
--- NOTE | 2022-08-24 13:46 | DI.CT.S_ITS ---
PROCEDURE: CT CHEST W CON INDICATIONS: Pleural effusion, not elsewhere classified TECHNIQUE: After the administration of intravenous contrast, 5 mm thick sections acquired from the pulmonary apices to the posterior costophrenic angles. 1 mm axial lung, 5 mm thick coronal and sagittal reformats and 7 mm axial MIP were acquired. For radiation dose reduction, the following was used: automated exposure control, adjustment of mA and/or kV according to patient size. COMPARISON: [facility], [place], PET NECK TO MID THIGH, 07/14/2022, 13:44. FINDINGS: Image quality: Excellent. Lungs and pleura: There is a large low-density right and a small low-density left pleural effusion. Compressive atelectasis is present within the inferior aspect of the right lower lobe and the right middle lobe. Some dependent compressive atelectasis is present within the right upper lobe. Trace ground-glass opacities are present within the left upper lobe in addition to some interlobular septal thickening suggesting mild edema. Edema is also present at the left lung base. Mediastinum: Heart size is enlarged. No pericardial effusion. The ascending thoracic aorta measures 4.5 cm in diameter. Atheromatous calcifications are present at the aortic arch. No mediastinal or hilar adenopathy by size criteria. The central pulmonary arteries are normal in size. Esophagus is normal in caliber. No hiatal hernia. Bones and chest wall: No suspicious bony lesions. There is diffuse skeletal hyperostosis of the thoracic spine. No vertebral body compression fractures. No axillary or supraclavicular adenopathy by size criteria. Thyroid gland is enlarged with multiple dystrophic calcifications present. The left thyroid lobe is greater than the right. Abdomen: Visualized upper abdominal solid organs appear normal. Upper abdominal bowel loops are normal in caliber. IMPRESSION: 1. Large right and small left pleural effusion. 2. Mild left pulmonary edema. 3. Ectasia of the ascending thoracic aorta. Annual sonographic surveillance recommended. 4. Enlarged thyroid lobe with calcifications present. If further characterization is warranted, nonemergent thyroid ultrasound could be used. 5. Cardiomegaly without pericardial effusion. Dictated by: Marilyn Echols M.D. on 08/24/2022 at 16:43 Approved by: Marilyn Echols M.D. on 08/24/2022 at 16:52
== END ==
PROVIDERS: PCP Internal Medicine; Referring Provider Internal Medicine; Visit Provider Internal Medicine
DX: I51.7 Cardiomegaly (principal); J90 Pleural effusion, not elsewhere classified; I50.20 Unspecified systolic (congestive) heart failure; J81.1 Chronic pulmonary edema; I77.810 Thoracic aortic ectasia; E04.2 Nontoxic multinodular goiter; Z85.79 Personal history of other malignant neoplasms of lymphoid, hematopoietic and related tissues
CPT/HCPCS: 70491; 71260; Q9967

== ENCOUNTER → 2022-10-20 09:00 | Outpatient (CLI) | payer MEDICARE, SELFPAY ==
[2018-09-14 19:00] VITALS: BMI 26.9
--- NOTE | 2022-10-20 | DI.RAD.S_ITS ---
PROCEDURE: FL BARIUM SWALLOW W SPEECH INDICATIONS: Dysphagia COMPARISON: TECHNIQUE: Examination was conducted in conjunction with speech pathology per standard protocol. In the lateral projection, filming was performed of the patient swallowing. AP projection filming may also be performed with patient swallowing. COMPARISON: None. FINDINGS: Function: The oral preparatory phase appears normal, with proper containment. The subsequent oral propulsive phase, pharyngeal phase, and esophageal phase of swallowing also appear normal with all proffered substances. No laryngotracheal penetration or aspiration. No pathologic vallecular pooling. Morphology: No cricopharyngeal bar is identified. No cervical esophageal webs. No Zenker's diverticulum. No strictures. IMPRESSION: Normal modified barium swallow exam. No laryngeal penetration or aspiration. Please see separate speech pathologist's report. Dictated by: Mario Birch M.D. on 10/20/2022 at 14:24 Approved by: Mario Birch M.D. on 10/20/2022 at 14:29
--- NOTE | 2022-10-20 12:16 | ST.SWALLOW ---
Visit Care Team Role Provider Type Brock Almanzar MD Primary Care Provider Non-Staff Specialty: Internal Medicine Address: [address] [place] [address] [address], [place], [address] Email: Carlo Cooper MD Attending Provider Non-Staff Referring Provider Specialty: General Surgery Address: [address] [place] [address], [phone] Fax: Email: Modified Barium Swallow Study FREIGHT RECEIVER Modified Barium Swallow Study Start: 10/20/22 11:03 Freq: Status: Active Protocol: Document 10/20/22 11:08 LNK (Rec: 10/20/22 12:13 LNK [id number]) Modified Barium Swallow Study Total Time Visit Start Time 09:30 Visit Stop Time 10:00 Total Visit Minutes [address] Carlo Cooper Reason for Referral dysphagia Setting Setting Outpatient Care Patient Information Identification Type Name,Date of Patient History Pt was seen for a Modified Barium Swallow Study (MBSS) at the referral of Dr cooper. According to the pt, he has had difficulty with swallowing pills, and dry foods such as crackers, chips, etc. he also complained of dry mouth with thick mucous pt described the sensation as pricky feeling near his laryngeal area. Pt stated this has been going on for years. Pt denies a neurological disorder, trauma or surgery to the neck area and reflux. Subjective Observations Pt was seated in the fluoroscopy chair. Instructions and procedures were described for the pt. He indicated that he understood and agreed to proceed. Patient Positioning Position View Lat-A/P Imaging Lateral View Textures Administered Trials Presented Thin Liquid via Spoon (IDDSI 0 ),Thin Liquid via Cup (IDDSI 0 ),Extremely Thick Liquid via Straw (IDDSI 4),Regular (IDDSI 7) Barium Tablet Yes The IDDSI Framework Protocol: IDDSI.1 Oral Impairment Source: The Modified Barium Swallow Impairment Profile (MBSImP??) Lip Closure No labial escape Tongue Control During Bolus Hold Cohesive bolus between tongue to palatal seal Bolus Preparation/Mastication Timely & efficient chewing & mashing Bolus Transport/Lingual Motion Brisk tongue motion Oral Residue Trace residue lining oral structures Location Tongue Initiation of Pharyngeal Swallow Bolus head at posterior angle of ramus (first hyoid excursion) Additional Oral Impairment Observations OME and DKS were observed to be WNL. ORAL PHASE of pt's swallows was observed to be WNL. mastication was noted to have rotary chew with clearance of the bolus to the UES. Pharyngeal Impairment Source: The Modified Barium Swallow Impairment Profile (MBSImP??) Soft Palate Elevation No bolus between soft palate & pharyngeal wall Laryngeal Elevation Comp.sup.move.thyroid cart.w/ comp.approx.arytenoids to epiglot petiole Anterior Hyoid Excursion Partial anterior movement Epiglottic Movement Complete inversion Laryngeal Vestibular Closure Complete; no air/contrast in laryngeal vestibule Pharyngeal Stripping Wave Present - complete Pharyngoesophageal Segment Opening Complete distention & complete duration; no obstruction of flow Tongue Base Retraction Narrow column of contrast/air betwn tongue base & post. pharyngeal wall Pharyngeal Residue Collection of residue within/ on pharyngeal structures Location Diffuse (>3 areas) Additional Pharyngeal Impairment PHARYNGEAL PHASE of pt's Observations swallow noted mild tongue base weakness which negatively impacted the forward movement of the hyoid. Epiglottic inversion was complete with good seal of the laryngeal vestibule. Flash penetration was observed x1 with consecutive swallows of thin liquids Pharyngeal residue was observed in the valeculla aerepiglottic folds and the pyriforms with solid and semi- solid trials. A water flush was noted to clear residue. A/P View The IDDSI Framework Protocol: IDDSI.1 A/P View Observations Pharyngeal Contraction Complete Esophageal Clearance Upright Position Esophageal retention Vocal Fold Function Good Esophageal Function Stasis Additional A-P Observations The UES appeared to open WFL. Withing the esophagus, across all trials, a posterior wall tissue mass was observed near C6-C7. With the liquid mass did not not obstruct the bolus ; however with the semi-solid and the solid bolus trials there was retention and stasis of approximately half of the boluses above the tissue mass. The retained boluses were able to be cleared with a water flush. Once cleared, the esophagus was noted to empty within a timely manner. Recommend GI referral to further assess the upper portion of the esophagus. Clinical Impressions Findings Oropharyngeal swallow function was observed to be WNL. Further assessment of the esophagus is recommended to determine to nature of the tissue mass located near C6-C7 on the posterior wall of the esophagus Patient Appropriate for Therapy No Recommendations Diet Liquids Order Thin (IDDSI 0) Diet Order Regular (IDDSI 7) Comments Recommend increased awareness of swallowing, especially in social settings Aspiration Precautions Recommended Precautions Upright at 90 Degrees,Small Bites/Sips Additional Precautions Pills in a carrier if they get stuck Treatment Plan Recommended Referrals Primary Care Physician,GI Consult Therapy Strategy Recommendations Small Bites and Sips
== END ==
PROVIDERS: PCP Internal Medicine; Referring Provider Surgery; Visit Provider Surgery
DX: R13.10 Dysphagia, unspecified (principal)
CPT/HCPCS: 74230; 92611

== ENCOUNTER → 2023-02-11 15:56 | Outpatient (CLI) | payer MEDICARE, SELFPAY ==
[2018-09-14 19:00] VITALS: BMI 26.9
--- NOTE | 2023-02-11 | DI.MRI.S_ITS ---
PROCEDURE: MR CERVICAL SPINE WO CON INDICATIONS: CERVICAL RADICULOPATHY TECHNIQUE: Noncontrast sagittal T1 spin echo and T2 fast spin echo, sagittal STIR, foraminal oblique sagittal T2 fast spin echo, and axial gradient echo or T2 fast spin echo through the cervical spine. COMPARISON: [facility], CT, CT SOFT TISSUE NECK W CON, 08/24/2022, 14:19. [facility], [place], PET NECK TO MID THIGH, 07/14/2022, 13:44. FINDINGS: Image quality: This examination is limited by involuntary motion artifact. Alignment and Curvature: There is minimal retrolisthesis seen at C3-C4. Bone Marrow: Marrow demonstrates normal overall signal. Spinal Cord: Visualized spinal cord has normal size and signal. No cerebellar tonsillar herniation. Paraspinous Soft Tissues: No paravertebral masses. Prevertebral soft tissues are normal in thickness. C2-C3: The disc height is well-preserved. Loss of disc signal is seen at this level. A mild degree of generalized disc osteophyte complex is seen. Moderate facet joint hypertrophy is seen. No significant neural foraminal narrowing is seen. Mild central canal narrowing is seen. C3-C4: At least moderate loss of disc height and disc signal can be seen. Moderate generalized disc osteophyte complex is seen. There is a central disc osteophyte protrusion. At least moderate facet hypertrophy can be seen. There is moderate to severe bilateral neural foraminal narrowing, right worse than left. Moderate central canal narrowing is seen. There is associated mass effect upon the ventral spinal cord. C4-C5: Moderate loss of disc height is seen. Loss of disc signal is seen. At least moderate disc osteophyte complex is seen, which is eccentric to the left. There is a central/left disc osteophyte protrusion. Uncovertebral joint hypertrophy is seen at this level. At least moderate facet hypertrophy is seen. There is moderate to severe bilateral neural foraminal narrowing. Moderate central canal narrowing is seen. There is associated mass effect upon the ventral spinal cord. C5-C6: Nrzz-xx-wwmbhsqy loss of disc height and disc signal can be seen. At least moderate disc osteophyte complex is seen, which is eccentric to the left. Overall there is a central/left disc osteophyte protrusion. Uncovertebral joint hypertrophy is seen at this level. Moderate facet joint hypertrophy is seen. There is moderate right-sided and moderate to severe left-sided neural foraminal narrowing. Moderate central canal narrowing is seen. There is associated mass effect upon the ventral spinal cord. C6-C7: The disc height is well-preserved. Loss of disc signal is seen at this level. Mild to moderate disc osteophyte complex is seen. Moderate facet joint hypertrophy is seen. Moderate bilateral neural foraminal narrowing is seen. Mild central canal narrowing is seen. C7-T1: The disc height is well-preserved. Loss of disc signal is seen at this level. Mild to moderate disc osteophyte complex is seen. Mild to moderate facet hypertrophy can be seen. There is twrg-[id number] bilateral neural foraminal narrowing. No significant central canal narrowing is seen. IMPRESSION: Multiple levels of cervical spine degenerative change can be seen, which are overall worst at the C4-C5 level. Motion limited study. Dictated by: Estevan Espinoza M.D. on 02/11/2023 at 17:03 Approved by: Estevan Espinoza M.D. on 02/11/2023 at 17:08
== END ==
PROVIDERS: PCP Internal Medicine; Referring Provider Student in an Organized Health Care Education/Training Program; Visit Provider Student in an Organized Health Care Education/Training Program
DX: M54.12 Radiculopathy, cervical region (principal)
CPT/HCPCS: 72141

== ENCOUNTER → 2023-06-28 13:19 | Outpatient (CLI) | payer MEDICARE, SELFPAY ==
[2018-09-14 19:00] VITALS: BMI 26.9
--- NOTE | 2023-06-28 13:20 | DI.RAD.S_ITS ---
PROCEDURE: XR THORACIC SPINE 3V INDICATIONS: mid-back pain TECHNIQUE: 3 views of the thoracic spine were acquired. COMPARISON: [facility], [place], XR CXR 1V, 06/27/2023, 10:25. FINDINGS: Bones: No fractures or dislocations. Fusion of the thoracic spine is seen; correlate with DISH or ankylosing spondylitis. Counting the exact number of ribs is difficult due to osteopenia. Soft tissues: Limited evaluation, but consolidation projecting over the right lung is notable. IMPRESSION: Thoracic spine fusion; correlate with DISH or ankylosing spondylitis Right lung pneumonic appearing infiltrates ; incompletely evaluated Dictated by: Darvin Cherry M.D. on 06/28/2023 at 15:15 Approved by: Darvin Cherry M.D. on 06/28/2023 at 15:18
--- NOTE | 2023-06-28 13:20 | DI.RAD.S_ITS ---
PROCEDURE: XR CERVICAL SPINE 4V OR 5V INDICATIONS: neck pain TECHNIQUE: 5 views of the cervical spine were acquired. COMPARISON: None. FINDINGS: Bones: No fractures or dislocations to the C7 level. Questionable grade 1 or 2 anterolisthesis of C7 over T1 is not well evaluated, as seen on the lateral view. Soft tissues: Prevertebral soft tissues are normal in thickness. IMPRESSION: Questionable grade 1 - 2 anterolisthesis of C7 over T1 is poorly evaluated due to overlying soft tissues; if indicated CT neck may provide additional diagnostic benefit Dictated by: Darvin Cherry M.D. on 06/28/2023 at 15:08 Approved by: Darvin Cherry M.D. on 06/28/2023 at 15:15
== END ==
PROVIDERS: PCP Internal Medicine; Referring Provider Anesthesiology; Visit Provider Anesthesiology
DX: M54.2 Cervicalgia (principal); M54.6 Pain in thoracic spine; B02.29 Other postherpetic nervous system involvement; R20.8 Other disturbances of skin sensation; Z98.1 Arthrodesis status
CPT/HCPCS: 72050; 72072; 99214